=== PATIENT | female | born 1940 | race Caucasian/White ===

== ENCOUNTER → 2016-07-01 | Outpatient (CLI) | payer BC ==
[~2016-07-01] MED LIST: ACET-1256 PO; AMIO200T4 PO; ATOR-22 PO; FAMO20TA11 PO; FURO20TA PO; IPRA1AER2 INH; LOSA50TA6 PO; MULT-506 PO; ULT/50 PO; VERA120T65 PO; WARF1TAB6 PO
[2016-07-01 13:49] LABS: BASO % 0.8 %; BASO ABS # 0.05 K/uL (0-0.2); COMPLETE YES; HEMATOCRIT 39.8 % (37-47); IG% 0.2 %; LYMPH % 28.8 %; LYMPH ABS # 1.85 K/uL (1.2-3.4); MEAN CELL VOLUME 86.1 fL (80-100); MEAN CORPUSCULAR HEMOGLOBIN 28.4 pg (25-34); MEAN CORPUSCULAR HGB CONC 32.9 g/dl (32-36); MEAN PLATELET VOLUME 11.5 fL (7.4-10.4); MONO % 7.8 %; NEUT % 60.4 %; PLATELET COUNT 227 K/uL (130-400); RED BLOOD COUNT 4.62 M/uL (4.2-5.4); WHITE BLOOD COUNT 6.43 K/uL (4.8-10.8)
[2016-07-01 14:11] LABS: ALT/SGPT 44 U/L (12-78); BLOOD UREA NITROGEN 15 mg/dl (7-18); BUN/CREATININE RATIO 22.4 (10-20); CARBON DIOXIDE 26 mmol/L (21-32); CHLORIDE 106 mmol/L (98-107); CREATININE 0.68 mg/dl (0.60-1.20); GLUCOSE 76 mg/dl (70-99); POTASSIUM 3.7 mmol/L (3.5-5.1); SODIUM 143 mmol/L (136-145)
[2016-07-01 14:22] LABS: ALB/GLOB RATIO 0.9 (0.9-2); ALKALINE PHOSPHATASE 137 U/L (45-117); AST/SGOT 31 U/L (15-37)
[2016-07-01 14:23] LABS: ESTIMATED AVERAGE GLUCOSE 131 mg/dl; HA1C FLAG Normal (Normal)
== END | disposition home or self-care (01) ==
LOC: C.LABBC 10:30
PROVIDERS: ATTEND Internal Medicine Geriatric Medicine
DX: M19.90 Unspecified osteoarthritis, unspecified site (principal); I10 Essential (primary) hypertension; E78.5 Hyperlipidemia, unspecified; E11.9 Type 2 diabetes mellitus without complications; I48.0 Paroxysmal atrial fibrillation; Z79.01 Long term (current) use of anticoagulants

== ENCOUNTER → 2016-12-29 | Outpatient (CLI) | payer BC ==
[2016-12-29 10:54] LABS: BASO % 0.5 %; BASO ABS # 0.03 K/uL (0-0.2); COMPLETE YES; EOS % 1.6 %; HEMATOCRIT 38.6 % (37-47); IG% 0.2 %; LYMPH ABS # 1.79 K/uL (1.2-3.4); MEAN CELL VOLUME 92.1 fL (80-100); MEAN CORPUSCULAR HEMOGLOBIN 29.6 pg (25-34); MEAN CORPUSCULAR HGB CONC 32.1 g/dl (32-36); MEAN PLATELET VOLUME 11.4 fL (7.4-10.4); MONO % 7.5 %; NEUT % 61.2 %; PLATELET COUNT 200 K/uL (130-400); RED BLOOD COUNT 4.19 M/uL (4.2-5.4); WHITE BLOOD COUNT 6.17 K/uL (4.8-10.8)
[2016-12-29 10:57] LABS: ESTIMATED AVERAGE GLUCOSE 140 mg/dl; HA1C FLAG Normal (Normal)
[2016-12-29 14:33] LABS: ALT/SGPT 35 U/L (12-78); AST/SGOT 19 U/L (15-37); BLOOD UREA NITROGEN 18 mg/dl (7-18); BUN/CREATININE RATIO 22.7 (10-20); CARBON DIOXIDE 26 mmol/L (21-32); CHLORIDE 109 mmol/L (98-107); CHOLESTEROL 181 mg/dl (0-200); CREATININE 0.78 mg/dl (0.60-1.20); GLUCOSE 130 mg/dl (70-99); POTASSIUM 3.7 mmol/L (3.5-5.1); SODIUM 142 mmol/L (136-145); TRIGLYCERIDES 316 mg/dl (0-150); VERY LOW DENSITY LIPOPROT CALC 63 mg/dl
[2016-12-29 14:36] LABS: ALB/GLOB RATIO 1.1 (0.9-2); ALKALINE PHOSPHATASE 113 U/L (45-117); CHOLESTEROL/HDL RATIO 3.4; HDL CHOLESTEROL 54 mg/dl; LDL CHOLESTEROL CALCULATED 64 mg/dl
== END | disposition home or self-care (01) ==
LOC: C.LABBC 09:12
PROVIDERS: ATTEND Internal Medicine Geriatric Medicine
DX: M19.90 Unspecified osteoarthritis, unspecified site (principal); I10 Essential (primary) hypertension; M79.7 Fibromyalgia; E78.5 Hyperlipidemia, unspecified; E55.9 Vitamin D deficiency, unspecified; E11.9 Type 2 diabetes mellitus without complications

== ENCOUNTER → 2017-03-16 | Outpatient (CLI) | payer BC ==
--- NOTE | 2017-03-16 15:16 | MAMMOGRAPHY REPORT ---
BILATERAL DIGITAL SCREENING MAMMOGRAM WITH CAD: 03/16/2017 CLINICAL HISTORY: Routine screening. TECHNIQUE: Bilateral CC, MLO and repeat MLO views were obtained with more anterior compression. Cur rent study was also evaluated with a Computer Aided Detection (CAD) system. COMPARISON: Comparison is made to exams dated: 03/15/2016 mammogram, 03/12/2015 mammogram, 03/11/2014 m ammogram, 10/12/2013 mammogram, 03/07/2013 mammogram, and 03/06/2012 mammogram - [facility] enter. BREAST COMPOSITION: There are scattered areas of fibroglandular density in both breasts. FINDINGS: Linear scar markers overlie the left breast. There is a stable ribbon-shaped biopsy marker clip in the 12:00 anterior left breast. Stable asymmetry in the superior left breast. Mild vascula r calcification and benign coarse complications bilaterally. No suspicious mass, architectural disto rtion or cluster of microcalcifications is seen. IMPRESSION: ACR BI-RADS CATEGORY 1: NEGATIVE There is no mammographic evidence of malignancy. A 1 year screening mammogram is recommended. The pa tient will receive written notification of the results. Approximately 10% of breast cancers are not detected with mammography. A negative mammographic report should not delay biopsy if a clinically suggestive mass is present. Mariah Augustin M.D. ay/:03/16/2017 10:57:33 Income Tax Analyst: Hakan HANLEY(Lorin)(Kane), [facility] letter sent: Normal 1/2 BI-RADS Code: ACR BI-RADS Category 1: Negative
== END | disposition home or self-care (01) ==
LOC: C.MAMM 08:56
PROVIDERS: ATTEND Internal Medicine Geriatric Medicine
DX: Z12.31 Encounter for screening mammogram for malignant neoplasm of breast (principal)

== ENCOUNTER → 2017-07-08 | Outpatient (CLI) | payer BC ==
[2017-07-08 13:31] LABS: BASO % 0.7 %; BASO ABS # 0.05 K/uL (0-0.2); EOS % 2.3 %; EOS ABS # 0.16 K/uL (0-0.5); HEMATOCRIT 37.8 % (37-47); HEMOGLOBIN 12.3 g/dL (12.0-16.0); IG# 0.03 K/uL (0.00-0.02); LYMPH ABS # 2.49 K/uL (1.2-3.4); MEAN CELL VOLUME 90.9 fL (80-100); MEAN CORPUSCULAR HEMOGLOBIN 29.6 pg (25-34); MEAN CORPUSCULAR HGB CONC 32.5 g/dl (32-36); MEAN PLATELET VOLUME 10.7 fL (7.4-10.4); MONO % 10.7 %; MONO ABS # 0.76 K/uL (0.11-0.59); NEUT % 50.9 %; NEUT ABS # 3.62 K/uL (1.4-6.5); PLATELET COUNT 264 K/uL (130-400); RED CELL DISTRIBUTION WIDTH CV 12.5 % (11.5-14.5); RED CELL DISTRIBUTION WIDTH SD 41.4 fL (36.4-46.3); WHITE BLOOD COUNT 7.11 K/uL (4.8-10.8)
[2017-07-08 13:51] LABS: HEMOGLOBIN A1C 6.5 % (4.5-5.6)
[2017-07-08 14:29] LABS: BLOOD UREA NITROGEN 19 mg/dl (7-18); CALCIUM 8.9 mg/dl (8.5-10.1); CARBON DIOXIDE 30 mmol/L (21-32); CREATININE 0.62 mg/dl (0.60-1.20); GLUCOSE 111 mg/dl (70-99); SODIUM 139 mmol/L (136-145)
== END | disposition home or self-care (01) ==
LOC: C.LABBC 11:02
PROVIDERS: ATTEND Internal Medicine Geriatric Medicine
DX: M19.90 Unspecified osteoarthritis, unspecified site (principal); I10 Essential (primary) hypertension; M79.7 Fibromyalgia; E11.9 Type 2 diabetes mellitus without complications; I48.0 Paroxysmal atrial fibrillation; Z79.01 Long term (current) use of anticoagulants; I48.92 Unspecified atrial flutter

== ENCOUNTER → 2017-09-13 | Outpatient (CLI) | payer BC ==
[2017-09-13 17:11] LABS: HEMATOCRIT 36.2 % (37-47); HEMOGLOBIN 12.3 g/dL (12.0-16.0); MEAN CORPUSCULAR HEMOGLOBIN 30.9 pg (25-34); MEAN PLATELET VOLUME 11.3 fL (7.4-10.4); PLATELET COUNT 224 K/uL (130-400); RED CELL DISTRIBUTION WIDTH CV 13.1 % (11.5-14.5); RED CELL DISTRIBUTION WIDTH SD 43.8 fL (36.4-46.3); WHITE BLOOD COUNT 8.32 K/uL (4.8-10.8)
[2017-09-13 17:25] LABS: INR 2.3 (0.9-1.1)
== END | disposition home or self-care (01) ==
LOC: C.LABBC 14:25
PROVIDERS: ATTEND Internal Medicine Geriatric Medicine
DX: R58 Hemorrhage, not elsewhere classified (principal)

== ENCOUNTER → 2017-09-29 | Outpatient (CLI) | payer BC ==
[2017-09-29 16:06] LABS: ALBUMIN 3.7 gm/dl (3.4-5.0); BLOOD UREA NITROGEN 17 mg/dl (7-18); CALCIUM 8.5 mg/dl (8.5-10.1); CARBON DIOXIDE 28 mmol/L (21-32); CREATININE 0.71 mg/dl (0.60-1.20); PHOSPHORUS 3.3 mg/dl (2.5-4.9); POTASSIUM 3.7 mmol/L (3.5-5.1); SODIUM 139 mmol/L (136-145)
[2017-09-29 16:32] LABS: GLUCOSE 182 mg/dl (70-99)
== END | disposition home or self-care (01) ==
LOC: C.LAB 14:17
PROVIDERS: ATTEND Registered Nurse
DX: E11.9 Type 2 diabetes mellitus without complications (principal)

== ENCOUNTER → 2017-10-04 | Outpatient (CLI) | payer BC ==
[~2017-10-04] MED LIST changes: +OPTIRAY 320 IV PRN
--- NOTE | 2017-10-04 16:23 | DIAGNOSTIC IMAGING REPORT ---
CT SCAN OF THE ABDOMEN AND PELVIS WITH IV CONTRAST CLINICAL HISTORY: Hematochezia. Abdominal bloating. COMPARISON STUDY: Abdominal CT dated 03/31/2016. TECHNIQUE: Following the IV administration of 93 cc of Optiray 320, CT scan of the abdomen and pelvis is performed from the lung bases to the proximal femora. Images are reviewed in the axial, sagittal, and coronal planes. IV contrast was administered without complication. A dose lowering technique was utilized adhering to the principles of ALARA. CT DOSE: 875.20 mGycm FINDINGS: Lung bases: The patient is status post midline sternotomy. The heart is enlarged and without pericardial effusion. There is evidence of previous mitral valve surgery. Pacemaker leads are noted. The lung bases are clear. Liver: The contrast-enhanced liver is normal in size, contour, and attenuation. Fatty infiltration is seen adjacent to falciform ligament. There is no intrahepatic biliary ductal dilatation. The hepatic veins and portal veins are patent. Gallbladder: Unremarkable. Spleen: Normal in size and attenuation. Pancreas: Unremarkable. Adrenal glands: Unremarkable. Kidneys: The contrast enhanced kidneys demonstrate mild cortical atrophy and are without hydronephrosis. There is mild fullness of the renal collecting system bilateral. The kidneys enhance symmetrically. Abdominal vasculature: The abdominal aorta is normal in course and caliber noting mild to moderate atherosclerotic calcification. 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 No bowel obstruction is seen. There is advanced diverticulosis of the left colon without CT evidence of acute diverticulitis. The appendix is not identified and reported surgically absent. Peritoneum: There is no intraperitoneal free air or abdominal ascites. Lymphadenopathy: None. Pelvic viscera: The bladder is normal as visualized. The uterus is surgically absent. No adnexal lesion is seen. Skeletal structures: The skeletal structures are osteopenic. Postlaminectomy change is seen in the lower lumbar spine. No lytic or blastic lesions are seen. IMPRESSION: 1. There are no acute infectious or inflammatory findings in the abdomen or pelvis. 2. Again seen are postoperative changes from a transverse colostomy. No bowel obstruction is identified. 3. There is advanced diverticulosis of the left colon without CT evidence of acute diverticulitis. 4. Cardiomegaly. 5. Additional findings as above. Electronically signed by: Kaiden Lopez M.D. 10/04/2017 4:22 PM Dictated Date/Time: 10/04/2017 4:15 PM
== END | disposition home or self-care (01) ==
LOC: C.CTS 15:03
PROVIDERS: ATTEND Registered Nurse
DX: K62.5 Hemorrhage of anus and rectum (principal); R14.0 Abdominal distension (gaseous); I51.7 Cardiomegaly; K57.90 Diverticulosis of intestine, part unspecified, without perforation or abscess without bleeding

== ENCOUNTER → 2017-10-26 | Day surgery (SDC) | payer BC ==
[2017-10-17 09:01] VITALS: Ht 162.6 cm; Wt 72.7 kg
[~2017-10-26] VITALS: Ht 162.6 cm; Wt 72.7 kg
[~2017-10-26] MED LIST changes: -AMIO200T4 PO; +AMOX500C3 PO; +CHOL1TAB46 PO; +DSY50 PO; -FAMO20TA11 PO; -FURO20TA PO; +LIDOCAINE HCL 2% 2 ML VIAL (20MG/ML) ONE; +MIDAZOLAM HCL 1 MG/ML 2ML VIAL ONE; +ONDANSETRON INJ 2 MG/ML 2 ML VIAL ONE; -OPTIRAY 320 IV PRN; +PROPOFOL IV EMULSION 10 MG/ML 20 ML VIAL ONE; +SODIUM CHLORIDE 0.9% 500ML 500 ML IV ONE
--- NOTE | 2017-10-26 08:24 | Endo History and Physical ---
History & Physical Date of Service: October 26, 2017. Chief Complaint: Blood in stool Referring Physician: Dr. Dunne History of Present Illness 77 yo CF who presents for colonoscopy secondary to blood in stool. Past Medical History Diabetes, Arthritis, Gastrointestinal Disorder, Reflux, High Cholesterol, Sleep Apnea, Hypertension Past Surgical History Hx Cardiac Surgery: Yes ([id number], HEART CATH 2015) Hx Internal Defibrillator: No Hx Pacemaker: Yes (BIOTRONIC) Hx Abdominal Surgery: Yes (colon resection with colostomy 03/2015, APPY, [facility]) Hx of Implantable Prosthesis: No Hx Post-Op Nausea and Vomiting: No Hx Cancer Surgery: No Hx Thoracic Surgery: No Hx Orthopedic: Yes (LUMBAR FUSION, R RADIAL HEAD REPAIR 1972, BILT TKA) Hx Urinary Tract Surgery: No Family History Esophogeal CA Social History Smoking Status: Never Smoker Hx Substance Use: No Hx Alcohol Use: No Allergies Coded Allergies: Adhesives (Verified Allergy, Unknown, 03/30/16) Citalopram (Verified Allergy, Unknown, ? HIVES, 03/30/16) Clonidine (Verified Allergy, Unknown, pt doesn't remember what happened, 03/30/16) Codeine (Verified Allergy, Unknown, HIVES, NAUSEA/VOMITING, 03/30/16) Dexbrompheniramine (Verified Allergy, Unknown, 03/30/16) Nabumetone (Unverified Allergy, Unknown, DIARRHEA, 03/30/16) Pregabalin (Verified Allergy, Unknown, unknown, 03/30/16) Triprolidine (Verified Allergy, Unknown, 03/30/16) Metformin (Verified Adverse Reaction, Severe, diarrhea, 03/30/16) Brompheniramine (Unverified Adverse Reaction, Mild, hives, 03/30/16) Topiramate (Verified Adverse Reaction, Mild, DISORIENTED, 03/30/16) Amitriptyline (Verified Adverse Reaction, Unknown, DISORIENTED, 03/30/16) Morphine (Verified Adverse Reaction, Unknown, BURNING IN BACK AREA, ) Pseudoephedrine (Unverified Adverse Reaction, Unknown, hives, 03/30/16) Raloxifene (Verified Adverse Reaction, Unknown, DISORIENTED, 03/30/16) Current Medications Reported Home Medications Medications Dose Route/Sig Max Daily Dose Days Date Category Dose Instructions Vitamin D3 (Cholecalciferol) 5,000 Unit Tab 1 Tab PO DAILY 10/17/17 Reported Trazodone HCl 50 Mg Tab 0.5 Tab PO HS 10/17/17 Reported Amoxil (Amoxicillin) 500 Mg Cap 4 Cap PO UD 10 10/17/17 Reported Jantoven (Warfarin Sodium) 1 Mg Tab 3 Mg PO 2XWK 10/17/17 Reported Tylenol (Acetaminophen) 500 Mg Tab 1 Tab PO Q8 3 06/03/16 Reported Jantoven (Warfarin Sodium) 1 Mg Tab 1 Mg PO 5XWK 06/03/16 Reported Lipitor (Atorvastatin Calcium) 20 Mg Tab 1 Tab PO DAILY 30 06/03/16 Reported Multivitamin (Multivitamins) Tab 1 Tab PO DAILY 06/03/16 Reported Verapamil HCl ER (Verapamil HCl) 120 Mg Tabcr 240 Mg PO QAM 03/30/16 Reported Cozaar (Losartan Potassium) 50 Mg Tab 100 Mg PO QPM 02/13/16 Reported Ultram (Tramadol Hcl) 50 Mg Tab 50 Mg PO Q8 PRN 03/31/13 Reported PRN PAIN Combivent Respimat (Ipratropium-Albuterol) 1 Aer Aer 2 Puffs INH QID PRN 03/31/13 Reported Vital Signs Weight (Kilograms): 72.73 Height (Feet): 5 Height (Inches): 4 Date Time Temp Pulse Resp B/P (MAP) Pulse Ox O2 Delivery O2 Flow Rate FiO2 10/26/17 08:11 37.0 87 16 147/91 (109) 93 Room Air Physical Exam General Appearance: WD/WN, no apparent distress Respiratory/Chest: Auscultation: breath sounds normal Cardiovascular: Heart Auscultation: RRR Abdomen: Bowel Sounds: normal Inspection & Palpation: soft, non-distended, no tenderness, guarding & rebound Assessment and Plan Assessment: 77 yo CF who presents for colonoscopy secondary to blood in stool. Plan: Proceed with colonoscopy.
--- NOTE | 2017-10-26 09:15 | Anesthesiology Progress Note ---
Anesthesia Post Op Note Date & Time October 26, 2017 at 09:13 Vital Signs Pain Intensity: 0 Vital Signs Past 12 Hours Date Time Temp Pulse Resp B/P (MAP) Pulse Ox O2 Delivery O2 Flow Rate FiO2 10/26/17 08:11 37.0 87 16 147/91 (109) 93 Room Air Notes Mental Status: alert / awake / arousable, participated in evaluation Pt Amnestic to Procedure: Yes Nausea / Vomiting: adequately controlled Pain: adequately controlled Airway Patency, RR, SpO2: stable & adequate BP & HR: stable & adequate Hydration State: stable & adequate Anesthetic Complications: no major complications apparent The patient is awake and her vitals are stable.
--- NOTE | 2017-10-26 09:24 | Discharge Instructions ---
Endoscopy Patient Instructions Date / Procedure(s) Performed October 26, 2017. Colonoscopy Allergy Information Coded Allergies: Adhesives (Verified Allergy, Unknown, 03/30/16) Citalopram (Verified Allergy, Unknown, ? HIVES, 03/30/16) Clonidine (Verified Allergy, Unknown, pt doesn't remember what happened, 03/30/16) Codeine (Verified Allergy, Unknown, HIVES, NAUSEA/VOMITING, 03/30/16) Dexbrompheniramine (Verified Allergy, Unknown, 03/30/16) Nabumetone (Unverified Allergy, Unknown, DIARRHEA, 03/30/16) Pregabalin (Verified Allergy, Unknown, unknown, 03/30/16) Triprolidine (Verified Allergy, Unknown, 03/30/16) Metformin (Verified Adverse Reaction, Severe, diarrhea, 03/30/16) Brompheniramine (Unverified Adverse Reaction, Mild, hives, 03/30/16) Topiramate (Verified Adverse Reaction, Mild, DISORIENTED, 03/30/16) Amitriptyline (Verified Adverse Reaction, Unknown, DISORIENTED, 03/30/16) Morphine (Verified Adverse Reaction, Unknown, BURNING IN BACK AREA, ) Pseudoephedrine (Unverified Adverse Reaction, Unknown, hives, 03/30/16) Raloxifene (Verified Adverse Reaction, Unknown, DISORIENTED, 03/30/16) Discharge Date / Findings October 26, 2017. Diverticulosis Mild inflammation in the rectosigmoid colon Medication Instructions Stopped Medication(s): COUMADIN OK to resume all medications today as prescribed Reported Home Medications Medications Dose Route/Sig Max Daily Dose Days Date Category Dose Instructions Vitamin D3 (Cholecalciferol) 5,000 Unit Tab 1 Tab PO DAILY 10/17/17 Reported Trazodone HCl 50 Mg Tab 0.5 Tab PO HS 10/17/17 Reported Amoxil (Amoxicillin) 500 Mg Cap 4 Cap PO UD 10 10/17/17 Reported Jantoven (Warfarin Sodium) 1 Mg Tab 3 Mg PO 2XWK 10/17/17 Reported Tylenol (Acetaminophen) 500 Mg Tab 1 Tab PO Q8 3 06/03/16 Reported Jantoven (Warfarin Sodium) 1 Mg Tab 1 Mg PO 5XWK 06/03/16 Reported Lipitor (Atorvastatin Calcium) 20 Mg Tab 1 Tab PO DAILY 30 06/03/16 Reported Multivitamin (Multivitamins) Tab 1 Tab PO DAILY 06/03/16 Reported Verapamil HCl ER (Verapamil HCl) 120 Mg Tabcr 240 Mg PO QAM 03/30/16 Reported Cozaar (Losartan Potassium) 50 Mg Tab 100 Mg PO QPM 02/13/16 Reported Ultram (Tramadol Hcl) 50 Mg Tab 50 Mg PO Q8 PRN 03/31/13 Reported PRN PAIN Combivent Respimat (Ipratropium-Albuterol) 1 Aer Aer 2 Puffs INH QID PRN 03/31/13 Reported Provider Instructions Activity Restrictions - No exercising or heavy lifting for 24 hours. - Do not drink alcohol the day of the procedure. - Do not drive a car or operate machinery until the day after the procedure. - Do not make any important decisions or sign important papers in 24 hours after the procedure. Following Day: - Return to full activity which may include returning to work/school. Diet Start your diet with liquids and light foods (jello, soup, juice, toast). Then eat your usual diet if not nauseated. Treatment For Common After Affects For mild abdominal pain, bloating, or excessive gas: - Rest - Eat lightly - Lie on right side Follow-Up Information Follow-up with Dr. Dunne as scheduled Anesthesia Information What You Should Know You have had a procedure that required some medicine to reduce anxiety and discomfort. This treatment is called moderate sedation. After receiving the treatment, you may be sleepy, but you will be able to breathe on your own. The effects of the treatment may last for several hours. Follow these instructions along with Activity/Diet recommendations noted above: * Do NOT do anything where dizziness or clumsiness would be dangerous. * Rest quietly at home today, then you can be up and about tomorrow. * Have a responsible person stay with you the rest of today. * You may have had an I.V. today. If so, you may take the dressing off later today. Recommendations Call your doctor if: * Trouble breathing * Continuous vomiting for more than 24 hours * Temperature above 101 degrees * Severe abdominal pain or bloating * Pain not relieved by pain medicine ordered * There is increased drainage or redness from any incision * A large amount of rectal bleeding greater than 2-3 tablespoons. (If you had a polyp/s removed or have hemorrhoids, a small amount of blood - from the rectum is to be expected.) * You have any unanswered questions or concerns. IN THE EVENT OF A SERIOUS EMERGENCY, GO TO THE NEAREST EMERGENCY ROOM Your discharge instructions were prepared by provider Joey Bautista. Patient Instructions Signature Page Erin Gates Patient (or Guardian) Signature/Date: I have read and understand the instructions given to me by my caregivers. Caregiver/RN/Doctor Signature/Date: The above-named patient and/or guardian has received patient instructions on this date. + Original Patient Signature Page (only) stays with chart. Please make copy for patient.
[2017-10-26 09:25] VITALS: BP 110/70; PULSE 71; O2SAT 95
--- NOTE | 2017-10-26 10:25 | GI REPORT ---
Patient Name: Erin Gates Procedure Date: 10/26/2017 8:12 AM Date of : 1940 Admit Type: Outpatient Age: 77 Gender: Female Attending MD: Joey Bautista DO Procedure: Colonoscopy Providers: Joey Bautista DO Referring MD: Ian Dunne Indications: Ileostomy bleed Medicines: Monitored Anesthesia Care Complications: No immediate complications. Estimated Blood Loss: Estimated blood loss: none. Procedure: Pre-Anesthesia Assessment: - Prior to the procedure, a History and Physical was performed, and patient medications and allergies were reviewed. The patient's tolerance of previous anesthesia was also reviewed. The risks and benefits of the procedure and the sedation options and risks were discussed with the patient. All questions were answered, and informed consent was obtained. Prior Anticoagulants: The patient has taken Coumadin (warfarin), last dose was 3 days prior to procedure. ASA Grade Assessment: III - A patient with severe systemic disease. After reviewing the risks and benefits, the patient was deemed in satisfactory condition to undergo the procedure. After I obtained informed consent, the scope was passed under direct vision. Throughout the procedure, the patient's blood pressure, pulse, and oxygen saturations were monitored continuously. The scope was introduced through the transverse colostomy and advanced to the terminal ileum. The colonoscopy was performed without difficulty. The scope was introduced through the transverse colostomy and advanced to the transverse colon, but was limited secondary to a large amount of solid stool. This was the intended extent. The scope was introduced through the anus and advanced to the sigmoid colon. The patient tolerated the procedure well. The quality of the bowel preparation was good. The terminal ileum, the ileocecal valve and the appendiceal orifice were photographed. Findings: The perianal and digital rectal examinations were normal. A few small-mouthed diverticula were found in the sigmoid colon. A diffuse area of mildly altered vascular and erythematous mucosa was found in the recto-sigmoid colon. Impression: - Diverticulosis in the sigmoid colon. - Altered vascular and erythematous mucosa in the recto-sigmoid colon. - No specimens collected. Recommendation: - Resume previous diet. - Continue present medications. - Return to primary care physician as previously scheduled. - No repeat colonoscopy due to age and the absence of advanced adenomas. Joey Bautista DO 10/26/2017 10:25:36 AM This report has been signed electronically. Note Initiated On: 10/26/2017 8:12 AM Number of Addenda: 0 I attest to the content of the Intraoperative Record and orders documented therein, exceptions below {[id number]}
== END | disposition home or self-care (01) ==
LOC: C.GI 07:19
PROVIDERS: ATTEND Internal Medicine
DX: K92.1 Melena (principal); R14.0 Abdominal distension (gaseous); K63.89 Other specified diseases of intestine; E11.9 Type 2 diabetes mellitus without complications; Z93.3 Colostomy status; G47.33 Obstructive sleep apnea (adult) (pediatric); I10 Essential (primary) hypertension; Z79.899 Other long term (current) drug therapy; Z80.0 Family history of malignant neoplasm of digestive organs; Z88.8 Allergy status to other drugs, medicaments and biological substances; Z88.5 Allergy status to narcotic agent; Z79.01 Long term (current) use of anticoagulants; K57.30 Diverticulosis of large intestine without perforation or abscess without bleeding

== ENCOUNTER 2021-11-21 09:59 | Inpatient (IN) ==
[2021-11-21] MEDS ORDERED: SODIUM CHLORIDE 0.9% 1000ML 500 ML IV ONE (10:09)
--- NOTE | 2021-11-21 10:31 | Emergency Department Note ---
History of Present Illness General Chief complaint: Weakness Stated complaint: DISORIENTED, WEAK, HAD PARACENTESIS YESTERDAY Time Seen by Provider: 11/21/21 10:09 Source: family ( and daughter) History of Present Illness Provider complaint: Weakness Onset (ago): day(s) 2 Maximum Pain Intensity: 9 Associated symptoms: + confusion, + nausea/vomiting and + weakness; no chest pain, no cough, no fever/chills, no headaches or no shortness of breath 81-year-old female presents emergency department with family for weakness. Patient has a history of adrenal cancer and is being treated by Dr. Low [facility] oncology. The family reports that she has been increasingly disoriented confused and nauseous since yesterday after she had a paracentesis done where they removed 9 L of fluid and gave her albumin. They report that the patient has not been eating and has been vomiting. Home Medications Medication Instructions Recorded Confirmed Type cholecalciferol (vitamin D3) 125 5,000 units PO DAILY tab 01/10/19 11/20/21 History mcg (5,000 unit) tablet magnesium oxide 400 mg PO DAILY cap 01/10/19 11/20/21 History multivitamin 1 tab PO DAILY 01/10/19 11/20/21 History lancets 33 gauge ([facility]a 10/04/19 11/20/21 Rx Lancets) amoxicillin 500 mg capsule 2,000 mg PO ONCE PRN cap 04/29/20 11/20/21 History warfarin 1 mg tablet 2 mg PO .as directed tab 05/08/20 11/20/21 History warfarin 1 mg tablet 3 mg PO .as directed tab 05/08/20 11/20/21 History blood sugar diagnostic ([facility] 08/25/20 11/20/21 Rx Ultra Blue Test Strip) verapamil 240 mg 24 hr 360 mg PO DAILY cap 07/03/21 11/20/21 History capsule,extended release atorvastatin 20 mg tablet 20 mg PO DAILY #90 tab 07/28/21 11/20/21 Rx acetaminophen 500 mg tablet 500 mg PO Q6H PRN 10/08/21 11/20/21 History (Tylenol Extra Strength) tramadol 50 mg tablet 25 mg PO Q8H PRN #45 tab 10/12/21 11/20/21 Rx lmpnqhfjrz-htapbehjprlln-atemilff 1 cap PO Q4H PRN 10/15/21 11/20/21 History 50 mg-325 mg-40 mg capsule losartan 100 mg tablet (Cozaar) 100 mg PO DAILY 10/15/21 11/20/21 History Allergies Allergy/AdvReac Type Severity Reaction Status Date / Time citalopram Allergy Intermediate ? HIVES Verified 11/20/21 12:32 codeine Allergy Intermediate HIVES, Verified 11/20/21 12:32 NAUSEA/VOMITING adhesive Allergy Mild Redness of Verified 11/20/21 12:32 Skin dexbrompheniramine Allergy Unknown Unknown Verified 11/20/21 12:32 pregabalin Allergy Unknown unknown Verified 11/20/21 12:32 triprolidine Allergy Unknown Unknown Verified 11/20/21 12:32 metformin AdvReac Intermediate diarrhea Verified 11/20/21 12:32 pseudoephedrine AdvReac Intermediate hives Verified 11/20/21 12:32 brompheniramine AdvReac Mild hives Verified 11/20/21 12:32 nabumetone AdvReac Mild DIARRHEA Verified 11/20/21 12:32 raloxifene AdvReac Mild DISORIENTED Verified 11/20/21 12:32 topiramate AdvReac Mild DISORIENTED Verified 11/20/21 12:32 amitriptyline AdvReac Unknown DISORIENTED Verified 11/20/21 12:32 morphine AdvReac Unknown BURNING IN Verified 11/20/21 12:32 BACK AREA Past Med/Surg History Medical History Aortic atherosclerosis Asthma Atrial fibrillation (~2015) Followed by [facility] Back pain, chronic Cardiac pacemaker Chronic anticoagulation Managed by [facility] Chronic osteoarthritis Compression fracture of thoracic vertebra Coronary artery calcification Diverticulitis s/p colostomy Fibromyalgia Heart failure Hematuria, gross Hepatic steatosis Hyperlipidemia Hypertension Insomnia Migraine with aura Obstructive sleep apnea Rheumatic mitral valve disease Type 2 diabetes mellitus Vitamin D deficiency Surgical History H/O colonoscopy H/O hemorrhoidectomy H/O hysterectomy with oophorectomy age 42- due to ovarian cyst and abnormal bleeding H/O mitral valve replacement (~2015) 04/23/[address] [facility] Biocor 29 mm valve. H/O tooth extraction History of appendectomy History of back surgery lumbar surgery with Dr. Chaparro in 2011 History of bilateral knee replacement left knee- 2003, right knee- 2008 History of bunionectomy History of creation of ostomy (~2013) Diverting Transverse Loop Colostomy History of surgery on arm Hx of tonsillectomy Family History Unknown Diabetes Son cerebral palsey Mother COPD (chronic obstructive pulmonary disease) Diabetes Cardiovascular disease Hypertension Cancer Bone Daughter Breast cancer Sister Breast cancer unsure of primary site Father Malignant neoplasm of esophagus Arteriosclerotic cardiovascular disease Diabetes Heart disease Hypertension Brother Prostate cancer Sister Breast cancer Social History Smoking Status: Never smoker Second Hand Exposure: No; Hx Alcohol Use: No Hx Substance Use: No Preferred Language: Iranian Communication Ability: Effective Visual Impairment: Limited Hearing Ability: Normal 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 Gas Required: No Beliefs That Will Affect Care: None marital status: Current Living Situation: Spouse current occupational status: retired 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[employer]; 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 [employer] How many Children do You have: 3 How many Children do You have Comment: son passed at age 18 Feels Safe at Home: Yes Childhood Exposure to Second-Hand Smoke: Yes caffeine: No during the past year weight has: remained stable Dental Care, Regularly: Yes Physical Activity Frequency: 1-2 Times per Week Seatbelt Use: always Sunscreen Use: Yes Review of Systems Unobtainable due to cognitive status Physical Exam Vital Signs Vital Signs - 24 hr 11/21/21 10:03 11/21/21 10:10 11/21/21 10:40 Temperature 36.8 C Temperature Source Temporal Artery Scan Pulse Rate 102 H Pulse Rate [Apical] 92 H Respiratory Rate 18 20 Blood Pressure 98/53 L Blood Pressure [Right Arm] 97/48 L Blood Pressure Mean 68 Blood Pressure Mean [Right Arm] 64 Pulse Oximetry 96 96 Oxygen Delivery Method Room Air Room Air Room Air Sepsis Recent Fever Within 48 Hours No Sepsis New/Unexplained Change in Mental Status Yes Sepsis Action Taken by Nursing MD Previously Notified 11/21/21 12:00 Temperature Temperature Source Pulse Rate Pulse Rate [Apical] 97 H Respiratory Rate 17 Blood Pressure Blood Pressure [Right Arm] 103/58 L Blood Pressure Mean Blood Pressure Mean [Right Arm] 73 Pulse Oximetry 95 Oxygen Delivery Method Room Air Sepsis Recent Fever Within 48 Hours Sepsis New/Unexplained Change in Mental Status Sepsis Action Taken by Nursing Physical Exam HENT: Exam performed. -Head: Normocephalic and atraumatic. -Right Ear: External ear normal. No mastoid tenderness. -Left Ear: External ear normal. No mastoid tenderness. -Mouth/Throat: The oropharynx is clear and moist. No trismus in the jaw. No dental abscesses or uvula swelling. No oropharyngeal exudate or tonsillar abscesses. EYES: Conjunctivae and EOM are normal. Pupils are equal, round, and reactive to light. Right eye exhibits no discharge. Left eye exhibits no discharge. No scleral icterus. NECK: Normal range of motion. Neck supple. No JVD present. No spinous process tenderness present. No carotid bruit present. No rigidity. No tracheal deviation and normal range of motion present. No Brudzinski's sign and no Kernig's sign n oted. CV: Normal rate, regular rhythm, normal heart sounds and intact distal pulses. There is no peripheral edema. Palpable radial pulses bue. PULM/CHEST: Effort normal and breath sounds normal. No respiratory distress. No stridor. She has no wheezes. She has no rales. -Chest Wall: She exhibits no tenderness. ABD: The abdomen is soft. Ostomy bag present. No fluid wave. MUSC/SKEL: Normal range of motion. There is no peripheral edema, tenderness or deformity. LYMPH: No cervical adenopathy. NEURO: Patient appears extremely lethargic. Motor and sensation grossly intact. Course Course 1009: The patient was evaluated in room A2. A complete history and physical exam was performed Cardiac monitoring: An order was placed for continuous cardiac monitoring. The monitor shows a rate of 110 with sinus tachycardia rhythm 1227: Vital signs stable. Imaging shows progression of the peritoneal carcinomatosis. Labs show acute kidney injury. Labs show hemoglobin 4.8. Hemoccult from the ostomy bag is was positive. Patient was noncompliance bolus and drip. Spoke with [facility] hospitalist team who stated to admit to Dr. Florence Administered Medications Discontinued Medications Sodium Chloride (Nss 1000ml) 500 mls @ 999 mls/hr IV .Q31M ONE Stop: 11/21/21 10:39 Last Admin: 11/21/21 12:11 Dose: 999 mls/hr Documented by: [id number] Critical Care Time Critical Care Time: Yes Total Critical Care Time: 49 I have personally spent greater than 49 minutes of critical care time in the direct management of this patient. This includes bedside care, interpretation of diagnostic studies, and testing, discussion with consultants, patient, and family members, and other required patient management activities. This 49 minutes is in excess of all separately billable procedures. Medical Decision Making Laboratory Data Result diagrams: 11/21/21 10:40 11/21/21 10:40 Lab Results 11/21/21 11/21/21 11/21/21 Range/Units 10:40 10:40 10:40 WBC 12.18 H (4.8-10.8) K/uL RBC 1.54 L (4.2-5.4) M/uL Hgb 4.8 L* (12.0-16.0) g/dL Hct 14.5 L* (37-47) % MCV 94.2 (80-100) fL MCH 31.2 (25-34) pg MCHC 33.1 (32-36) g/dL RDW Std Deviation 48.7 H (36.4-46.3) fL RDW Coeff of Jeff 14.5 (11.5-14.5) % Plt Count 399 (130-400) K/uL MPV 8.8 (7.4-10.4) fL Immature Gran % (Auto) 0.7 % Neut % (Auto) 76.8 % Lymph % (Auto) 12.8 % Stafford % (Auto) 9.6 % Eos % (Auto) 0.0 % Baso % (Auto) 0.1 % Neut # (Auto) 9.36 H (1.4-6.5) K/uL Lymph # (Auto) 1.56 (1.2-3.4) K/uL Stafford # (Auto) 1.17 H (0.11-0.59) K/uL Eos # (Auto) 0.00 (0-0.5) K/uL Baso # (Auto) 0.01 (0-0.2) K/uL Immature Gran # (Auto) 0.08 H (0.00-0.02) K/uL Hypochromasia Present PT 10.8 (9.0-12.0) Seconds INR 1.0 (0.9-1.1) APTT 25.1 (21.0-31.0) Seconds PTT Ratio 0.9 Sodium 127 L (136-145) mmol/L Potassium 4.8 (3.5-5.1) mmol/L Chloride 97 L (98-107) mmol/L Carbon Dioxide 23 (21-32) mmol/L Anion Gap 7 (3-11) BUN 47 H (6-23) mg/dl Creatinine 1.59 H (0.6-1.2) mg/dl Est Cr Clr Drug Dosing 28.3 ml/min Est GFR ( Amer) 34.9 ml/min Est GFR (Non-Af Amer) 30.1 ml/min BUN/Creatinine Ratio 29.6 H (10-20) Glucose 81 (70-99(Fasting)) mg/dl Lactate (0.4-2.0) mmol/L Calcium 8.0 L (8.5-10.1) mg/dl Magnesium 2.2 (1.7-2.4) mg/dl Total Bilirubin 0.4 (0.2-1.0) mg/dl AST 32 (13-39) U/L ALT 20 (7-52) U/L Alkaline Phosphatase 67 (34-104) U/L Ammonia (18-72) umol/L Troponin I High Sens 15.6 H (0-14) pg/ml Total Protein 5.5 L (6.0-8.3) gm/dl Albumin 3.1 L (3.4-5.0) gm/dl Globulin 2.4 L (2.5-4.0) gm/dl Albumin/Globulin Ratio 1.3 (0.9-2) Urine Color Urine Appearance (Clear) Urine pH (4.5-7.5) Ur Specific Osburn (1.000-1.030) Urine Protein (Negative) Urine Glucose (UA) (Negative) Urine Ketones (Negative) Urine Blood (Negative) Urine Nitrite (Negative) Urine Bilirubin (Negative) Urine Urobilinogen (Negative) Ur Leukocyte Esterase (Negative) Salicylates (3.0-30) mg/dl Acetaminophen (10-30) ug/ml SARS-CoV-2, RNA, NAAT (NEGATIVE) Crossmatch 05/28/22 05/28/22 05/28/22 Range/Units 10:40 10:40 11:00 WBC (4.8-10.8) K/uL RBC (4.2-5.4) M/uL Hgb (12.0-16.0) g/dL Hct (37-47) % MCV (80-100) fL MCH (25-34) pg MCHC (32-36) g/dL RDW Std Deviation (36.4-46.3) fL RDW Coeff of Jeff (11.5-14.5) % Plt Count (130-400) K/uL MPV (7.4-10.4) fL Immature Gran % (Auto) % Neut % (Auto) % Lymph % (Auto) % Stafford % (Auto) % Eos % (Auto) % Baso % (Auto) % Neut # (Auto) (1.4-6.5) K/uL Lymph # (Auto) (1.2-3.4) K/uL Stafford # (Auto) (0.11-0.59) K/uL Eos # (Auto) (0-0.5) K/uL Baso # (Auto) (0-0.2) K/uL Immature Gran # (Auto) (0.00-0.02) K/uL Hypochromasia PT (9.0-12.0) Seconds INR (0.9-1.1) APTT (21.0-31.0) Seconds PTT Ratio Sodium (136-145) mmol/L Potassium (3.5-5.1) mmol/L Chloride (98-107) mmol/L Carbon Dioxide (21-32) mmol/L Anion Gap (3-11) BUN (6-23) mg/dl Creatinine (0.6-1.2) mg/dl Est Cr Clr Drug Dosing ml/min Est GFR ( Amer) ml/min Est GFR (Non-Af Amer) ml/min BUN/Creatinine Ratio (10-20) Glucose (70-99(Fasting)) mg/dl Lactate 0.9 (0.4-2.0) mmol/L Calcium (8.5-10.1) mg/dl Magnesium (1.7-2.4) mg/dl Total Bilirubin (0.2-1.0) mg/dl AST (13-39) U/L ALT (7-52) U/L Alkaline Phosphatase (34-104) U/L Ammonia (18-72) umol/L Troponin I High Sens (0-14) pg/ml Total Protein (6.0-8.3) gm/dl Albumin (3.4-5.0) gm/dl Globulin (2.5-4.0) gm/dl Albumin/Globulin Ratio (0.9-2) Urine Color Urine Appearance (Clear) Urine pH (4.5-7.5) Ur Specific Osburn (1.000-1.030) Urine Protein (Negative) Urine Glucose (UA) (Negative) Urine Ketones (Negative) Urine Blood (Negative) Urine Nitrite (Negative) Urine Bilirubin (Negative) Urine Urobilinogen (Negative) Ur Leukocyte Esterase (Negative) Salicylates < 3.0 L (3.0-30) mg/dl Acetaminophen 10 (10-30) ug/ml SARS-CoV-2, RNA, NAAT NEGATIVE (NEGATIVE) Crossmatch 11/21/21 11/21/21 11/21/21 Range/Units 11:23 11:45 11:45 WBC (4.8-10.8) K/uL RBC (4.2-5.4) M/uL Hgb (12.0-16.0) g/dL Hct (37-47) % MCV (80-100) fL MCH (25-34) pg MCHC (32-36) g/dL RDW Std Deviation (36.4-46.3) fL RDW Coeff of Jeff (11.5-14.5) % Plt Count (130-400) K/uL MPV (7.4-10.4) fL Immature Gran % (Auto) % Neut % (Auto) % Lymph % (Auto) % Stafford % (Auto) % Eos % (Auto) % Baso % (Auto) % Neut # (Auto) (1.4-6.5) K/uL Lymph # (Auto) (1.2-3.4) K/uL Stafford # (Auto) (0.11-0.59) K/uL Eos # (Auto) (0-0.5) K/uL Baso # (Auto) (0-0.2) K/uL Immature Gran # (Auto) (0.00-0.02) K/uL Hypochromasia PT (9.0-12.0) Seconds INR (0.9-1.1) APTT (21.0-31.0) Seconds PTT Ratio Sodium (136-145) mmol/L Potassium (3.5-5.1) mmol/L Chloride (98-107) mmol/L Carbon Dioxide (21-32) mmol/L Anion Gap (3-11) BUN (6-23) mg/dl Creatinine (0.6-1.2) mg/dl Est Cr Clr Drug Dosing ml/min Est GFR ( Amer) ml/min Est GFR (Non-Af Amer) ml/min BUN/Creatinine Ratio (10-20) Glucose (70-99(Fasting)) mg/dl Lactate (0.4-2.0) mmol/L Calcium (8.5-10.1) mg/dl Magnesium (1.7-2.4) mg/dl Total Bilirubin (0.2-1.0) mg/dl AST (13-39) U/L ALT (7-52) U/L Alkaline Phosphatase (34-104) U/L Ammonia 26.0 (18-72) umol/L Troponin I High Sens (0-14) pg/ml Total Protein (6.0-8.3) gm/dl Albumin (3.4-5.0) gm/dl Globulin (2.5-4.0) gm/dl Albumin/Globulin Ratio (0.9-2) Urine Color Yellow Urine Appearance Clear (Clear) Urine pH 5.0 (4.5-7.5) Ur Specific Osburn 1.016 (1.000-1.030) Urine Protein Negative (Negative) Urine Glucose (UA) Negative (Negative) Urine Ketones Negative (Negative) Urine Blood Negative (Negative) Urine Nitrite Negative (Negative) Urine Bilirubin Negative (Negative) Urine Urobilinogen Negative (Negative) Ur Leukocyte Esterase Negative (Negative) Salicylates (3.0-30) mg/dl Acetaminophen (10-30) ug/ml SARS-CoV-2, RNA, NAAT (NEGATIVE) Crossmatch See Detail Imaging Data Radiologist's Impression: Chest X-Ray 11/21/21 10:10 XR chest 1V portable HISTORY: SEPSIS COMPARISON: Chest 02/13/2016. FINDINGS: No pneumothorax. Trace bilateral pleural effusions. The heart is mildly enlarged. There is mild central pulmonary vascular congestion without overt edema. A few small linear densities within the left midlung zone and right lung base favor subsegmental atelectasis or scarring. Otherwise, no focal lung consolidations to suggest pneumonia. There are poststernotomy changes and left- sided pacemaker. IMPRESSION: Mild cardiomegaly with trace bilateral pleural effusions and mild pulmonary vascular congestion. ACT 112: Negative or not required by law. Electronically signed by: Bi Lujan M.D. 11/21/2021 10:[address] 11/21/21 10:[address] DOSE: HISTORY: weakness TECHNIQUE: Multiaxial CT images of the head were performed without the use of intravenous contrast. Automated exposure control was utilized for this study. A dose lowering technique was utilized adhering to the principles of ALARA. Comparison: Head CT 10/19/2021. Findings: The paranasal sinuses and mastoid air cells are clear. The calvarium and skull base are intact. The ventricles and sulci are within normal limits. There is no mass, hematoma, midline shift, or acute infarct. Impression: No acute intracranial abnormality. ACT 112: Negative or not required by law. Electronically signed by: Bi Lujan M.D. 11/21/2021 12:07 PM Abdomen/Pelvis CT 11/21/21 11:[address] WITHOUT CONTRAST CT DOSE: 1489.25 mGy.cm HISTORY: weakness TECHNIQUE: Multiaxial CT images of the abdomen and pelvis were performed without contrast. A dose lowering technique was utilized adhering to the principles of ALARA. COMPARISON STUDY: Abdomen and pelvis CT 10/05/2021. FINDINGS: Stable 4 mm nodule within the left lower lobe on image 30. There are mild dependent changes seen at the lung bases. No pneumoperitoneum. No pne umatosis. Posterior decompression fusion with pedicle screws and rods again noted within the lumbar spine. There are poststernotomy changes. Pacemaker wires are noted. The heart remains mildly enlarged. There is a small hiatus hernia. Cholelithiasis. No hepatic or splenic masses identified. Normal right adrenal gland. The left adrenal gland appears surgically absent. No retroperitoneal lymphadenopathy. Mild calcified plaque within the normal caliber abdominal aorta. The bladder is not well-distended but appears unremarkable. Colonic diverticulosis. No evidence for acute diverticulitis. No bowel wall thickening or obstruction. There is a double barrel colostomy within the mid transverse colon at the midline. There is associated large parastomal hernia containing fat, fluid, and multiple soft tissue nodules consistent with peritoneal carcinomatosis. Multiple additional soft tissue nodules are seen within the omentum and peritoneal lining. This is consistent with peritoneal carcinomatosis . Overall, this has progressed in the interval. A small amount of scattered ascites has slightly improved. The left suprarenal/upper quadrant hyperdense soft tissue nodule is again noted and measures 11 mm. No hydronephrosis. IMPRESSION: 1. Interval progression of the peritoneal carcinomatosis demonstrated by increase in the soft tissue nodularity/caking at the omentum. 2. Small amount of ascites which has slightly improved. 3. Cholelithiasis. 4. No bowel wall thickening or obstruction. 5. Additional findings as described above. ACT 112: Negative or not required by law. Electronically signed by: Bi Lujan M.D. 11/21/2021 12:04 PM ECG Data Indication: + weakness Rate (beats per minute): 95 Rhythm: + sinus with SA ECG Intervals/blocks: + Normal QRS, + Normal IN and + Normal QT-c ECG ST segments: + Normal ST segments MDM Narrative Vital signs stable. Imaging shows progression of the peritoneal carcinomatosis. Labs show acute kidney injury. Labs show hemoglobin 4.8. Hemoccult from the ostomy bag is was positive. Patient was noncompliance bolus and drip. Spoke with [facility] hospitalist team who stated to admit to Dr. Florence Impression & Plan Anemia, DULCE MARIA (acute kidney injury) Discharge Plan Visit Data Chief Complaint: Weakness Stated Complaint: DISORIENTED, WEAK, HAD PARACENTESIS YESTERDAY ED Provider: Tuan Garay Discharge Problem: Anemia, DULCE MARIA (acute kidney injury) Patient Disposition: Admitted As Inpatient Forms Stand Alone Forms: [facility] Prescriptions Prescriptions: No Action amoxicillin 500 mg capsule 2,000 mg PO ONCE PRN (Reason: 30 to 60 mons prior to dental procedure) RF: 0 warfarin 1 mg tablet 3 mg PO .as directed RF: 0 verapamil 240 mg capsule,ext rel. pellets 24 hr 360 mg PO DAILY RF: 0 (DME) [employer] Ultra Blue Test Strip Strip See Dose Instructions .ROUTE .MEDSUPPLY Qty: 25 RF: 5 atorvastatin 20 mg tablet 20 mg PO DAILY Qty: 90 RF: 3 tramadol 50 mg tablet 25 mg PO Q8H PRN (Reason: pain) Qty: 45 RF: 0 magnesium oxide 400 mg magnesium capsule 400 mg PO DAILY RF: 0 multivitamin tablet 1 tab PO DAILY RF: 0 cholecalciferol (vitamin D3) 5,000 unit tablet 5,000 units PO DAILY RF: 0 warfarin 1 mg tablet 2 mg PO .as directed RF: 0 (DME) lancets [OneTouch [employer]ica Lancets] 33 gauge misc See Rx Instructions .ROUTE .MEDSUPPLY Qty: 100 RF: 0 acetaminophen [Tylenol Extra Strength] 500 mg tablet 500 mg PO Q6H PRN (Reason: Pain) RF: 0 ycdyinvbek-ncjxmarnuptua-azdw 50-325-40 mg capsule 1 cap PO Q4H PRN (Reason: headache) RF: 0 losartan [Cozaar] 100 mg tablet 100 mg PO DAILY RF: 0 Referrals Referrals: Baron Shi DO [Primary Care Provider] - Discharge Problem: Anemia Qualifiers: Anemia type: unspecified type Qualified Code(s): D64.9 - Anemia, unspecified
--- NOTE | 2021-11-21 10:55 | XRay Report ---
XR chest 1V portable HISTORY: SEPSIS COMPARISON: Chest 02/13/2016. FINDINGS: No pneumothorax. Trace bilateral pleural effusions. The heart is mildly enlarged. There is mild central pulmonary vascular congestion without overt edema. A few small linear densities within t he left midlung zone and right lung base favor subsegmental atelectasis or scarring. Otherwise, no fo elizabeth lung consolidations to suggest pneumonia. There are poststernotomy changes and left-sided pacemak er. IMPRESSION: Mild cardiomegaly with trace bilateral pleural effusions and mild pulmonary vascular congestion. ACT 112: Negative or not required by law. Electronically signed by: Bi Lujan M.D. 11/21/2021 10:54 AM
[2021-11-21 11:08] LABS: Partial Thromboplastin Ratio 0.9; Partial Thromboplastin Time 25.1 Seconds (21.0-31.0); Prothrombin Time 10.8 Seconds (9.0-12.0)
[2021-11-21 11:17] LABS: Acetaminophen 10 ug/ml (10-30); Salicylate < 3.0 mg/dl (3.0-30)
[2021-11-21 11:18] LABS: Albumin Globulin Ratio 1.3 (0.9-2); Albumin Level 3.1 gm/dl (3.4-5.0); BUN Creatinine Ratio 29.6 (10-20); Bilirubin,Total 0.4 mg/dl (0.2-1.0); Creatinine Clr Calc Pharmacy 28.3 ml/min; Est GFR (African American) 34.9 ml/min; Est GFR (Non-African American) 30.1 ml/min; Globulin 2.4 gm/dl (2.5-4.0); Magnesium 2.2 mg/dl (1.7-2.4); Potassium 4.8 mmol/L (3.5-5.1); Total Protein 5.5 gm/dl (6.0-8.3)
[2021-11-21 11:24] LABS: Troponin I High Sensitivity 15.6 pg/ml (0-14)
[2021-11-21 11:35] LABS: Hematocrit (blood only) 14.5 % (37-47); Hemoglobin 4.8 g/dL (12.0-16.0); Mean Corpuscular Hemoglobin 31.2 pg (25-34); Mean Corpuscular Hgb Conc 33.1 g/dL (32-36); Mean Corpuscular Volume 94.2 fL (80-100); Mean Platelet Volume 8.8 fL (7.4-10.4); Platelet Count 399 K/uL (130-400); RDW Coefficient of Variation 14.5 % (11.5-14.5); RDW Standard Deviation 48.7 fL (36.4-46.3); Red Blood Count 1.54 M/uL (4.2-5.4); White Blood Count 12.18 K/uL (4.8-10.8)
[2021-11-21] MEDS ORDERED: SODIUM CHLORIDE 0.9% 250 ML IV PRN ×3 (11:36→23:56)
[2021-11-21 11:49] LABS: Basophils # (auto) 0.01 K/uL (0-0.2); Basophils % (auto) 0.1 %; Hypochromasia Present; Immature Granulocytes # (auto) 0.08 K/uL (0.00-0.02); Immature Granulocytes % (auto) 0.7 %; Lymphocytes # (auto) 1.56 K/uL (1.2-3.4); Lymphocytes % (auto) 12.8 %; Monocytes # (auto) 1.17 K/uL (0.11-0.59); Monocytes % (auto) 9.6 %; Neutrophils # (auto) 9.36 K/uL (1.4-6.5); Neutrophils % (auto) 76.8 %
[2021-11-21 11:59] LABS: Appearance Urine Clear (Clear); Bilirubin Urine Negative (Negative); Blood Urine Negative (Negative); Color Urine Yellow; Glucose Urine UA Negative (Negative); Ketones Urine Negative (Negative); Leukocyte Esterase Urine Negative (Negative); Nitrite Urine Negative (Negative); Protein Urine Negative (Negative); Specific Gravity Urine 1.016 (1.000-1.030); Urobilinogen Urine Negative (Negative)
--- NOTE | 2021-11-21 12:06 | CT Scan Report ---
ABDOMEN AND PELVIS CT WITHOUT CONTRAST CT DOSE: 1489.25 mGy.cm HISTORY: weakness TECHNIQUE: Multiaxial CT images of the abdomen and pelvis were performed without contrast. A dose lo wering technique was utilized adhering to the principles of ALARA. COMPARISON STUDY: Abdomen and pelvis CT 10/05/2021. FINDINGS: Stable 4 mm nodule within the left lower lobe on image 30. There are mild dependent changes seen at the lung bases. No pneumoperitoneum. No pneumatosis. Posterior decompression fusion with ped icle screws and rods again noted within the lumbar spine. There are poststernotomy changes. Pacemaker wires are noted. The heart remains mildly enlarged. There is a small hiatus hernia. Cholelithiasis. No hepatic or splenic masses identified. Normal right adrenal gland. The left adrenal gland appears s urgically absent. No retroperitoneal lymphadenopathy. Mild calcified plaque within the normal caliber abdominal aorta. The bladder is not well-distended but appears unremarkable. Colonic diverticulosis. No evidence for acute diverticulitis. No bowel wall thickening or obstruction. There is a double bar rel colostomy within the mid transverse colon at the midline. There is associated large parastomal he rnia containing fat, fluid, and multiple soft tissue nodules consistent with peritoneal carcinomatosi s. Multiple additional soft tissue nodules are seen within the omentum and peritoneal lining. This is consistent with peritoneal carcinomatosis. Overall, this has progressed in the interval. A small niyah unt of scattered ascites has slightly improved. The left suprarenal/upper quadrant hyperdense soft ti ssue nodule is again noted and measures 11 mm. No hydronephrosis. IMPRESSION: 1. Interval progression of the peritoneal carcinomatosis demonstrated by increase in the soft tissue nodularity/caking at the omentum. 2. Small amount of ascites which has slightly improved. 3. Cholelithiasis. 4. No bowel wall thickening or obstruction. 5. Additional findings as described above. ACT 112: Negative or not required by law. Electronically signed by: Bi Lujan M.D. 11/21/2021 12:04 PM
--- NOTE | 2021-11-21 12:08 | CT Scan Report ---
HEAD CT NONCONTRAST CT DOSE: HISTORY: weakness TECHNIQUE: Multiaxial CT images of the head were performed without the use of intravenous contrast. A utomated exposure control was utilized for this study. A dose lowering technique was utilized adheri ng to the principles of ALARA. Comparison: Head CT 10/19/2021. Findings: The paranasal sinuses and mastoid air cells are clear. The calvarium and skull base are int act. The ventricles and sulci are within normal limits. There is no mass, hematoma, midline shift, or acute infarct. Impression: No acute intracranial abnormality. ACT 112: Negative or not required by law. Electronically signed by: Bi Lujan M.D. 11/21/2021 12:07 PM
[2021-11-21] MEDS ORDERED: PANTOPRAZOLE BOLUS/DRIP 1 EA IV STA (12:26)
[2021-11-21] MEDS ORDERED: PANTOprazole 80 MG in DEXTROSE 5% 100 ML IV ONE (12:26)
--- NOTE | 2021-11-21 12:32 | History & Physical Report ---
Date of Service November 21, 2021 History of Present Illness Primary Care Provider: Baron Shi, DO Allergies Allergy/AdvReac Type Severity Reaction Status Date / Time citalopram Allergy Intermediate ? HIVES Verified 11/20/21 12:32 codeine Allergy Intermediate HIVES, Verified 11/20/21 12:32 NAUSEA/VOMITING adhesive Allergy Mild Redness of Verified 11/20/21 12:32 Skin dexbrompheniramine Allergy Unknown Unknown Verified 11/20/21 12:32 pregabalin Allergy Unknown unknown Verified 11/20/21 12:32 triprolidine Allergy Unknown Unknown Verified 11/20/21 12:32 metformin AdvReac Intermediate diarrhea Verified 11/20/21 12:32 pseudoephedrine AdvReac Intermediate hives Verified 11/20/21 12:32 brompheniramine AdvReac Mild hives Verified 11/20/21 12:32 nabumetone AdvReac Mild DIARRHEA Verified 11/20/21 12:32 raloxifene AdvReac Mild DISORIENTED Verified 11/20/21 12:32 topiramate AdvReac Mild DISORIENTED Verified 11/20/21 12:32 amitriptyline AdvReac Unknown DISORIENTED Verified 11/20/21 12:32 morphine AdvReac Unknown BURNING IN Verified 11/20/21 12:32 BACK AREA Home Medications Medication Instructions Recorded Confirmed Type cholecalciferol (vitamin D3) 125 5,000 units PO DAILY tab 01/10/19 11/20/21 History mcg (5,000 unit) tablet magnesium oxide 400 mg PO DAILY cap 01/10/19 11/20/21 History multivitamin 1 tab PO DAILY 01/10/19 11/20/21 History lancets 33 gauge (OneTouch Delyahaira #100 ea 10/04/19 11/20/21 Rx Lancets) amoxicillin 500 mg capsule 2,000 mg PO ONCE PRN cap 04/29/20 11/20/21 History warfarin 1 mg tablet 2 mg PO .as directed tab 05/08/20 11/20/21 History warfarin 1 mg tablet 3 mg PO .as directed tab 05/08/20 11/20/21 History blood sugar diagnostic (OneTouch #25 ea 08/25/20 11/20/21 Rx Ultra Blue Test Strip) verapamil 240 mg 24 hr 360 mg PO DAILY cap 07/03/21 11/20/21 History capsule,extended release atorvastatin 20 mg tablet 20 mg PO DAILY #90 tab 07/28/21 11/20/21 Rx acetaminophen 500 mg tablet 500 mg PO Q6H PRN 10/08/21 11/20/21 History (Tylenol Extra Strength) tramadol 50 mg tablet 25 mg PO Q8H PRN #45 tab 10/12/21 11/20/21 Rx yzriugnbpy-cbynjmwenczop-zhtxhnuh 1 cap PO Q4H PRN 10/15/21 11/20/21 History 50 mg-325 mg-40 mg capsule losartan 100 mg tablet (Cozaar) 100 mg PO DAILY 10/15/21 11/20/21 History Past Med/Surg History Medical History Aortic atherosclerosis Asthma Atrial fibrillation (~2015) Followed by [facility] [place] Back pain, chronic Cardiac pacemaker Chronic anticoagulation Managed by [facility] Chronic osteoarthritis Compression fracture of thoracic vertebra Coronary artery calcification Diverticulitis s/p colostomy Fibromyalgia Heart failure Hematuria, gross Hepatic steatosis Hyperlipidemia Hypertension Insomnia Migraine with aura Obstructive sleep apnea Rheumatic mitral valve disease Type 2 diabetes mellitus Vitamin D deficiency Surgical History H/O colonoscopy H/O hemorrhoidectomy H/O hysterectomy with oophorectomy age 42- due to ovarian cyst and abnormal bleeding H/O mitral valve replacement (~2015) 04/23/[address] [facility] Biocor 29 mm valve. H/O tooth extraction History of appendectomy History of back surgery lumbar surgery with Dr. Chaparro in 2011 History of bilateral knee replacement left knee- 2003, right knee- 2008 History of bunionectomy History of creation of ostomy (~2013) Diverting Transverse Loop Colostomy History of surgery on arm Hx of tonsillectomy Family History Unknown Diabetes Son cerebral palsey Mother COPD (chronic obstructive pulmonary disease) Diabetes Cardiovascular disease Hypertension Cancer Bone Daughter Breast cancer Sister Breast cancer unsure of primary site Father Malignant neoplasm of esophagus Arteriosclerotic cardiovascular disease Diabetes Heart disease Hypertension Brother Prostate cancer Sister Breast cancer Social History Smoking Status: Never smoker Second Hand Exposure: No; Hx Alcohol Use: No Hx Substance Use: No Preferred Language: Irish Communication Ability: Effective Visual Impairment: Limited Hearing Ability: Normal Union Representative Required: No Beliefs That Will Affect Care: None marital status: Current Living Situation: Spouse current occupational status: retired 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; [employer] How many Children do You have: 3 How many Children do You have Comment: son passed at age 18 Feels Safe at Home: Yes Childhood Exposure to Second-Hand Smoke: Yes caffeine: No during the past year weight has: remained stable Dental Care, Regularly: Yes Physical Activity Frequency: 1-2 Times per Week Seatbelt Use: always Sunscreen Use: Yes Results & Data Results & Data ([facility]) Vital Signs (Past 12 Hours) Vital Signs Temp Pulse Pulse Resp BP BP Pulse Ox 11/21/21 12:00 97 H 17 103/58 L 95 11/21/21 10:40 92 H 20 97/48 L 96 11/21/21 10:03 36.8 C 102 H 18 98/53 L 96 PG Care Time/CCT Total # of Minutes Spent Total Time Spent with Patient: Total time spent is greater than 50% in coordination of care (as documented) at patient's floor/unit and/or counseling patient: Coding
--- NOTE | 2021-11-21 12:49 | History & Physical Report ---
Date of Service November 21, 2021 Assessment & Plan (1) Anemia: Plan: - Hgb 4.8, was 12.3 just one month ago. - CT A/P does not have evidence of source of bleed, no retroperitoneal hematoma noted. No recent falls, trauma. Nonbloody emesis, has had occasional scant amounts of bright red blood in ostomy, per this is not an uncommon finding for patient and amount/frequency has not increased. Without any other obvious source, suspect the likely case for her hgb drop is from the bloody output she and family have been noticing. - Patient will require transfusion, likely needing multiple units of blood. 1 unit has been started in ED, will order at H/H 1 hour after completion of first unit, will order additional units to transfuse overnight to reach stable hemoglobin >7. If initial H&H shows improvement, continue to monitor H/H every 4 hours for now. - Continue to monitor BP, as well as for signs of volume overload. - PPI drip with bolus started in ED, will continue this. - NSS at 125cc/hr. (2) Hyponatremia: Plan: - Na 127, likely in the setting of minimal p.o. intake, emesis. Sodium this low could certainly contribute to her complaints of generalized weakness, confusion. - Anticipate it will respond to IVF, continue to monitor on a.m. labs to ensure it is increasing appropriately. (3) Metabolic encephalopathy: Plan: - Current differential includes hyponatremia versus versus poor perfusion in setting of severe anemia. The patient has not been hypoxic here in our ED. No history of hepatic disease, ammonia WNL. Do not suspect infection. - With reports of confusion, forgetfulness since last evening after having paracentesis with removal of 9 L. Also in setting of hyponatremia, suspect these are both contributing. - Upon my exam, patient is alert and oriented to self and place, confused as to what month it is, told me it was August. She is quite fatigued and asks me to speak with family concerning what brought her in, but is able to answer specific questions appropriately for me when asked. - Continue to monitor response to blood products, correlate with sodium on a.m. labs. - Does have an elevated WBC of 12.18, lactate 0.9. Afebrile, no obvious source of infection on labs/imaging performed. Ordered procal to r/o infection, it is 0.21. Fluid from paracentesis yesterday was sent for culture, cultures also obtained and sent here. (4) Elevated troponin: Plan: - 15.6, suspect it is elevated due to her anemia, tachycardia and not reflective of cardiac event. - Repeated several hours later, 16.9. No concern for ACS or demand ischemia at this time with minimally elevated hs trops. (5) DULCE MARIA (acute kidney injury): Plan: - Likely due to dehydration, as patient has been too nauseous and vomiting this past week due to her ascites. - Received IVF in ED, also receiving fluids and blood products on floor for severe anemia w/ hypotension. Continue to monitor renal function on a.m. labs. - For now, avoid nephrotoxins and renally dose medications as able. (6) Carcinoma of left adrenal gland: Plan: - S/p left adrenalectomy, with peritoneal carcinomatosis. - Currently being treated by Dr. Low. (7) Hypertension: Plan: - Hold verapamil, losartan for now due to borderline hypotension/DULCE MARIA. (8) Atrial fibrillation: Plan: - Maintained on warfarin, 2 mg all days except Tuesday, when she takes 3 mg. This has been held since Tuesday in anticipation of paracentesis, will obviously continue to hold this due to ongoing blood loss. - MRI compatible pacemaker present. (9) Type 2 diabetes mellitus: Plan: - Diet controlled, no acute needs. (10) Hyperlipidemia: Plan: - Continue atorvastatin 20 mg daily. (11) Cardiac pacemaker: Plan: - Placed in March 2016 at time of mitral valve replacement. - MRI compatible. (12) H/O mitral valve replacement: Plan: - Admit to PCU. - SCDs for DVT PPx, chemoppx contraindicated due to acute bleed. - Full code. History of Present Illness Primary Care Provider: Baron Shi DO Patient is an 81-year-old female with past medical history significant for renal carcinoma s/p adrenalectomy, hypertension, hyperlipidemia, and A. fib presenting today with increased weakness and confusion at home. Patient had a therapeutic paracentesis yesterday, 11/20 in which 9L of fluid was removed and patient received 150 mL of albumin. She was initially quite fatigued after the procedure, and became increasingly confused as the evening progressed. She had difficulty keeping her eyes open an maintaining conversation. This morning, she was unable to tell her family her name or birthday. They brought her to the ED for further evaluation of this. She has had ongoing generalized weakness, and nausea with some nonbloody emesis this week, which was thought to be due to large volume malignant ascites and has resolved after her paracentesis. No fever/chills, no recent falls, chest pain, cough, shortness of breath, abdominal pain. She does occasionally have minimal blood noted in ostomy, this is not new for her, and it has been unchanged over the past week. Of note, patient was supposed to have her paracentesis this past Tuesday, however her INR was 4.0 at that time, therefore it was deferred until yesterday and her warfarin has been held. Her INR yesterday morning was 2.4, so has been reports she received vitamin K in order to proceed with paracentesis. In ED, she is borderline hypotensive at 103/58, HR 90s, otherwise VS wnl. Labs significant for WBC 12.18, lactate 0.9. Hgb 4.8, BUN 47, Cr 1.59, sodium 127, hsTrop 15.6. CT A/P with no evidence of bleeding, did show interval progression of the peritoneal carcinomatosis demonstrated by increase in the soft tissue nodularity/caking at the omentum, small ascites with slight improvement. Head CT unremarkable. CXR with mild cardiomegaly and trace pleural effusion, pulmonary vascular congestion. Allergies Allergy/AdvReac Type Severity Reaction Status Date / Time citalopram Allergy Intermediate ? HIVES Verified 11/21/21 12:35 codeine Allergy Intermediate HIVES, Verified 11/21/21 12:35 NAUSEA/VOMITING adhesive Allergy Mild Redness of Verified 11/21/21 12:35 Skin dexbrompheniramine Allergy Unknown Unknown Verified 11/21/21 12:35 pregabalin Allergy Unknown unknown Verified 11/21/21 12:35 triprolidine Allergy Unknown Unknown Verified 11/21/21 12:35 metformin AdvReac Intermediate diarrhea Verified 11/21/21 12:35 pseudoephedrine AdvReac Intermediate hives Verified 11/21/21 12:35 brompheniramine AdvReac Mild hives Verified 11/21/21 12:35 nabumetone AdvReac Mild DIARRHEA Verified 11/21/21 12:35 raloxifene AdvReac Mild DISORIENTED Verified 11/21/21 12:35 topiramate AdvReac Mild DISORIENTED Verified 11/21/21 12:35 amitriptyline AdvReac Unknown DISORIENTED Verified 11/21/21 12:35 morphine AdvReac Unknown BURNING IN Verified 11/21/21 12:35 BACK AREA Home Medications Medication Instructions Recorded Confirmed Type cholecalciferol (vitamin D3) 125 5,000 units PO QDL tab 01/10/19 11/21/21 History mcg (5,000 unit) tablet magnesium oxide 400 mg PO QDD cap 01/10/19 11/21/21 History multivitamin 1 tab PO QDB 01/10/19 11/21/21 [facility] 11/20/21 Rx Lancets) amoxicillin 500 mg capsule 2,000 mg PO ONCE PRN cap 04/29/20 11/21/21 History warfarin 1 mg tablet See Rx Instructions .ROUTE 05/08/20 11/21/21 History .COMPLEX tab blood sugar diagnostic ([facility] #25 ea 08/25/20 11/20/21 Rx Ultra Blue Test Strip) acetaminophen 500 mg tablet 500 mg PO Q6H PRN 10/08/21 11/21/21 History (Tylenol Extra Strength) tramadol 50 mg tablet 25 mg PO Q8H PRN #45 tab 10/12/21 11/21/21 Rx ulvguvoqiu-rktardltozlzj-onrizwce 1 cap PO Q4H PRN 10/15/21 11/21/21 History 50 mg-325 mg-40 mg capsule losartan 100 mg tablet (Cozaar) 100 mg PO QDD 10/15/21 11/21/21 History atorvastatin 20 mg tablet 20 mg PO QDL 11/21/21 11/21/21 History ondansetron HCl 8 mg tablet 8 mg PO Q8H PRN 11/21/21 11/21/21 History prochlorperazine maleate 10 mg 10 mg PO Q6H PRN 11/21/21 11/21/21 History tablet verapamil 360 mg 24 hr 360 mg PO QDB 11/21/21 11/21/21 History capsule,extended release Past Med/Surg History Medical History Aortic atherosclerosis Asthma Atrial fibrillation (~2015) [place] [facility] [place], chronic Cardiac pacemaker Chronic anticoagulation [place] [facility] Chronic osteoarthritis Compression fracture of thoracic vertebra Coronary artery calcification Diverticulitis s/p colostomy Fibromyalgia Heart failure Hematuria, gross Hepatic steatosis Hyperlipidemia Hypertension Insomnia Migraine with aura Obstructive sleep apnea Rheumatic mitral valve disease Type 2 diabetes mellitus Vitamin D deficiency Surgical History H/O colonoscopy H/O hemorrhoidectomy H/O hysterectomy with oophorectomy age 42- due to ovarian cyst and abnormal bleeding H/O mitral valve replacement (~2015) 04/23/[address] [facility] [employer] Biocor 29 mm valve. H/O tooth extraction History of appendectomy History of back surgery lumbar surgery with Dr. Chaparro in 2011 History of bilateral knee replacement left knee- 2003, right knee- 2008 History of bunionectomy History of creation of ostomy (~2013) Diverting Transverse Loop Colostomy History of surgery on arm Hx of tonsillectomy Family History Unknown Diabetes Son cerebral palsey Mother COPD (chronic obstructive pulmonary disease) Diabetes Cardiovascular disease Hypertension Cancer Bone Daughter Breast cancer Sister Breast cancer unsure of primary site Father Malignant neoplasm of esophagus Arteriosclerotic cardiovascular disease Diabetes Heart disease Hypertension Brother Prostate cancer Sister Breast cancer Social History Smoking Status: Never smoker Second Hand Exposure: No; Do You Dip or Chew Tobacco: No; Hx Alcohol Use: No Hx Substance Use: No Preferred Language: Comoran Communication Ability: Effective Visual Impairment: Limited Hearing Ability: Normal Tax Assessor Required: No Beliefs That Will Affect Care: None marital status: Current Living Situation: Spouse current occupational status: retired 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; [place] [email or web address] How many Children do You have: 3 How many Children do You have Comment: son passed at age 18 Feels Safe at Home: No Is there a partner from a previous relationship who is making you feel unsafe now?: No Any Concerns about Your Family Situation: No Would You Like to Speak to Someone About Your Situation: No Safety Concerns: Feels Safe At This Time Childhood Exposure to Second-Hand Smoke: Yes caffeine: No during the past year weight has: remained stable Dental Care, Regularly: Yes Physical Activity Frequency: 1-2 Times per Week Seatbelt Use: always Sunscreen Use: Yes Review of Systems Review of Systems: Constitutional: Generalized weakness, fatigue this week; no fever/chills, myalgias, anorexia, night sweats Eyes: No diplopia, no worsening or blurred vision ENT: normal hearing, no trouble swallowing Respiratory: No cough, sputum, dyspnea at rest or on exertion Cardiovascular: No chest pain, tightness or palpitations Abdomen: nausea, nonbloody emesis intermittently throughout the week; without hematemesis, melena, hematochezia : Denies dysuria, hematuria, increased urgency/frequency, urinary retention Musculoskeletal: No joint pain, calf pain, swelling Neurologic: No weakness, numbness/tingling, or balance problems Psychiatric: No anxiety or depression Skin: No rash or itch Physical Exam Physical Exam: General: awake, alert, no apparent distress Head: Normocephalic, atraumatic ENT: PERRL, EOMI, no pharyngeal exudate, mucous membranes moist Chest: Clear to auscultation, on room air, no adventitious breath sounds Cardiac: Regular rate and rhythm, no murmur, no JVD, normal peripheral pulses, good capillary refill Abdominal: NABS x 4 quadrants, soft, nontender to palpation, no rebound, guarding or tenderness Extremities: Normal inspection, no peripheral edema or erythema, calfs nontender to palpation Psych: Normal mood and affect Neuro: AAO x 3, strength intact bilaterally and rated 5/5, no motor deficits, speech is clear, no peripheral sensory deficits Skin: no rash or erythema Results & Data Results & Data ([facility]) Vital Signs (Past 12 Hours) Vital Signs Temp Pulse Pulse Resp BP BP Pulse Ox 11/21/21 12:00 97 H 17 103/58 L 95 11/21/21 10:40 92 H 20 97/48 L 96 11/21/21 10:03 36.8 C 102 H 18 98/53 L 96 Laboratory Results Abnormal lab results 11/21/21 11/21/21 11/21/21 Range/Units 10:40 10:40 10:40 WBC 12.18 H (4.8-10.8) K/uL RBC 1.54 L (4.2-5.4) M/uL Hgb 4.8 L* (12.0-16.0) g/dL Hct 14.5 L* (37-47) % RDW Std Deviation 48.7 H (36.4-46.3) fL Neut # (Auto) 9.36 H (1.4-6.5) K/uL Logan # (Auto) 1.17 H (0.11-0.59) K/uL Immature Gran # (Auto) 0.08 H (0.00-0.02) K/uL Sodium 127 L (136-145) mmol/L Chloride 97 L (98-107) mmol/L BUN 47 H (6-23) mg/dl Creatinine 1.59 H (0.6-1.2) mg/dl BUN/Creatinine Ratio 29.6 H (10-20) Calcium 8.0 L (8.5-10.1) mg/dl Troponin I High Sens 15.6 H (0-14) pg/ml Total Protein 5.5 L (6.0-8.3) gm/dl Albumin 3.1 L (3.4-5.0) gm/dl Globulin 2.4 L (2.5-4.0) gm/dl Salicylates < 3.0 L (3.0-30) mg/dl Crossmatch 11/21/21 Range/Units 11:45 WBC (4.8-10.8) K/uL RBC (4.2-5.4) M/uL Hgb (12.0-16.0) g/dL Hct (37-47) % RDW Std Deviation (36.4-46.3) fL Neut # (Auto) (1.4-6.5) K/uL Logan # (Auto) (0.11-0.59) K/uL Immature Gran # (Auto) (0.00-0.02) K/uL Sodium (136-145) mmol/L Chloride (98-107) mmol/L BUN (6-23) mg/dl Creatinine (0.6-1.2) mg/dl BUN/Creatinine Ratio (10-20) Calcium (8.5-10.1) mg/dl Troponin I High Sens (0-14) pg/ml Total Protein (6.0-8.3) gm/dl Albumin (3.4-5.0) gm/dl Globulin (2.5-4.0) gm/dl Salicylates (3.0-30) mg/dl Crossmatch See Detail Diagnostic Findings Chest X-Ray 11/21/21 10:10 XR chest 1V portable HISTORY: SEPSIS COMPARISON: Chest 02/13/2016. FINDINGS: No pneumothorax. Trace bilateral pleural effusions. The heart is mildly enlarged. There is mild central pulmonary vascular congestion without overt edema. A few small linear densities within the left midlung zone and right lung base favor subsegmental atelectasis or scarring. Otherwise, no focal lung consolidations to suggest pneumonia. There are poststernotomy changes and left- sided pacemaker. IMPRESSION: Mild cardiomegaly with trace bilateral pleural effusions and mild pulmonary vascular congestion. ACT 112: Negative or not required by law. Electronically signed by: Bi Lujan M.D. 11/21/2021 10:[address] 11/21/21 10:[address] DOSE: HISTORY: weakness TECHNIQUE: Multiaxial CT images of the head were performed without the use of intravenous contrast. Automated exposure control was utilized for this study. A dose lowering technique was utilized adhering to the principles of ALARA. Comparison: Head CT 10/19/2021. Findings: The paranasal sinuses and mastoid air cells are clear. The calvarium and skull base are intact. The ventricles and sulci are within normal limits. There is no mass, hematoma, midline shift, or acute infarct. Impression: No acute intracranial abnormality. ACT 112: Negative or not required by law. Electronically signed by: Bi Lujan M.D. 11/21/2021 12:07 PM Abdomen/Pelvis CT 11/21/21 11:[address] WITHOUT CONTRAST CT DOSE: 1489.25 mGy.cm HISTORY: weakness TECHNIQUE: Multiaxial CT images of the abdomen and pelvis were performed without contrast. A dose lowering technique was utilized adhering to the principles of ALARA. COMPARISON STUDY: Abdomen and pelvis CT 10/05/2021. FINDINGS: Stable 4 mm nodule within the left lower lobe on image 30. There are mild dependent changes seen at the lung bases. No pneumoperitoneum. No pneumatosis. Posterior decompression fusion with pedicle screws and rods again noted within the lumbar spine. There are poststernotomy changes. Pacemaker wires are noted. The heart remains mildly enlarged. There is a small hiatus hernia. Cholelithiasis. No hepatic or splenic masses identified. Normal right adrenal gland. The left adrenal gland appears surgically absent. No retroperitoneal lymphadenopathy. Mild calcified plaque within the normal caliber abdominal aorta. The bladder is not well-distended but appears unremarkable. Colonic diverticulosis. No evidence for acute diverticulitis. No bowel wall thickening or obstruction. There is a double barrel colostomy within the mid transverse colon at the midline. There is associated large parastomal hernia containing fat, fluid, and multiple soft tissue nodules consistent with peritoneal carcinomatosis. Multiple additional soft tissue nodules are seen within the omentum and peritoneal lining. This is consistent with peritoneal carcinomatosis. Overall, this has progressed in the interval. A small amount of scattered ascites has slightly improved. The left suprarenal/upper quadrant hyperdense soft tissue nodule is again noted and measures 11 mm. No hydronephrosis. IMPRESSION: 1. Interval progression of the peritoneal carcinomatosis demonstrated by increase in the soft tissue nodularity/caking at the omentum. 2. Small amount of ascites which has slightly improved. 3. Cholelithiasis. 4. No bowel wall thickening or obstruction. 5. Additional findings as described above. ACT 112: Negative or not required by law. Electronically signed by: Bi Lujan M.D. 11/21/2021 12:04 PM ECG Additional Comments: Sinus rhythm with marked sinus arrhythmia Pulmonary disease pattern Left anterior fascicular block Left ventricular hypertrophy with QRS widening Abnormal ECG When compared with ECG of 14-FEB-2016 07:13, Premature atrial complexes are no longer Present Left anterior fascicular block is now Present Nonspecific T wave abnormality no longer evident in Inferior leads Nonspecific T wave abnormality has replaced inverted T waves in Anterior leads. Code Status & VTE Plan Code Status Full code. Supervising Physician Co-Signing Physician Notes I personally examined the patient and verified all guillen points of history and exam, discussed case, and agree with decision making with Tito FRANKLIN mild stomach pain. occassional red blood in ostomy bag but nothing overt. paracentesis yesterday. vitals noted, very sleepy but nad otherwise (+) epigastric tenderness no guarding/rebound. remainder of abdomen benign severe anemia - no overt hemorrhage, Hgb ~12 a month ago. bili OK doubt hemolysis. no retroperitoneal/muscular hematomas etc noted. bigggest suspicion therefore would be GI bleeding, probably exacerbated by coagulopathy. transfusing, follow. GI input re ?benefit of scopes. INR reversed. on protonix gtt DULCE MARIA - from above. anticipate improvement coagulopathy - likley was from poor PO intake - which in turn was from pain. INR corrected. after review - on coumadin due to afib secondary to mitral disease (initially on discussions with it sounded like she might have been on coumadin due to mechanical mitral valve, but is bioprosthetic) peritoneal carinomatosis - prognosis poor, but were going to give trial to keytruda. therefore still aggressive care for now otherwise as above PG Care Time/CCT Total # of Minutes Spent Total Time Spent with Patient: Total time spent is greater than 50% in coordination of care (as documented) at patient's floor/unit and/or counseling patient: Coding Level of Care Code 95155 Initial Inpt Care Lvl 3 Diagnoses Carcinoma of left adrenal gland C74.92 Anemia D64.9 Anemia type: unspecified type DULCE MARIA (acute kidney injury) N17.9 Hypertension I10 Atrial fibrillation I48.91 Type 2 diabetes mellitus E11.9 Hyponatremia E87.1 Hyperlipidemia E78.5 Elevated troponin R77.8 Cardiac pacemaker Z95.0 H/O mitral valve replacement Z95.2 Metabolic encephalopathy G93.41 (1) Anemia Anemia type: unspecified type Qualified Code(s): D64.9 - Anemia, unspecified
[2021-11-21] MEDS: SODIUM CHLORIDE 0.9% 500 ML IV SCH ×2 (13:01→16:19)
[2021-11-21] MEDS: PANTOprazole 40 MG in DEXTROSE 5% 100 ML IV SCH ×3 (13:39→23:43)
[2021-11-21] MEDS ORDERED: traMADol HCL 50 MG TABLET PO PRN (14:28)
[2021-11-21] MEDS ORDERED: ONDANSETRON INJ 2 MG/ML 2 ML VIAL IV PRN (14:28)
[2021-11-21] MEDS ORDERED: POLYETHYLENE (MIRALAX) 17 GM PACK PO PRN (14:28)
[2021-11-21] MEDS ORDERED: PROCHLORPERAZINE 5 MG in SYRINGE 4 ML IV PRN (14:28)
[2021-11-21] MEDS ORDERED: BUTALBITAL/ACETAMIN/CAFFEINE TAB PO PRN (15:00)
[2021-11-21] MEDS: MAGNESIUM OXIDE 400 MG TAB PO SCH (17:59)
[2021-11-21 19:40] LABS: Hemoglobin 7.3 g/dL (12.0-16.0)
[2021-11-21] MEDS: cefTRIAXone SODIUM 1,000 MG in DEXTROSE 5% 50 ML IV SCH (20:08)
[2021-11-21] MEDS: ATORVASTATIN 20 MG TAB PO SCH (20:09)
[2021-11-21] MEDS: ACETAMINOPHEN 500 MG TAB PO PRN (20:09)
[2021-11-21 23:51] LABS: Hematocrit (blood only) 20.7 % (37-47); Hemoglobin 6.8 g/dL (12.0-16.0)
[2021-11-22 01:19] LABS: BUN Creatinine Ratio 31.5 (10-20); Calcium 7.4 mg/dl (8.5-10.1); Creatinine Clr Calc Pharmacy 40.8 ml/min; Est GFR (African American) 55.8 ml/min; Est GFR (Non-African American) 48.1 ml/min; Potassium 4.7 mmol/L (3.5-5.1)
[2021-11-22] MEDS: PANTOprazole 40 MG in DEXTROSE 5% 100 ML IV SCH ×4 (04:16→21:42)
[2021-11-22 06:14] LABS: Basophils # (auto) 0.02 K/uL (0-0.2); Basophils % (auto) 0.2 %; Eosinophils # (auto) 0.02 K/uL (0-0.5); Eosinophils % (auto) 0.2 %; Hematocrit (blood only) 23.7 % (37-47); Hemoglobin 7.8 g/dL (12.0-16.0); Immature Granulocytes # (auto) 0.12 K/uL (0.00-0.02); Immature Granulocytes % (auto) 1.1 %; Lymphocytes # (auto) 1.01 K/uL (1.2-3.4); Lymphocytes % (auto) 9.7 %; Mean Corpuscular Hemoglobin 28.4 pg (25-34); Mean Corpuscular Hgb Conc 32.9 g/dL (32-36); Mean Corpuscular Volume 86.2 fL (80-100); Mean Platelet Volume 8.8 fL (7.4-10.4); Monocytes # (auto) 1.07 K/uL (0.11-0.59); Monocytes % (auto) 10.2 %; Neutrophils # (auto) 8.22 K/uL (1.4-6.5); Neutrophils % (auto) 78.6 %; Nucleated RBC # (auto) 0.11 K/uL (0-0); Nucleated RBC % (auto) 1.1 %; Platelet Count 303 K/uL (130-400); RDW Coefficient of Variation 18.9 % (11.5-14.5); RDW Standard Deviation 59.2 fL (36.4-46.3); Red Blood Count 2.75 M/uL (4.2-5.4); White Blood Count 10.46 K/uL (4.8-10.8)
[2021-11-22 06:32] LABS: BUN Creatinine Ratio 29.9 (10-20); Calcium 7.4 mg/dl (8.5-10.1); Creatinine Clr Calc Pharmacy 45.1 ml/min; Est GFR (African American) 63.5 ml/min; Est GFR (Non-African American) 54.8 ml/min; Potassium 4.5 mmol/L (3.5-5.1)
[2021-11-22 06:40] LABS: Anisocytosis Present; Polychromasia 1+; Target Cells 1+
[2021-11-22 07:01] LABS: Prothrombin Time 10.3 Seconds (9.0-12.0)
--- NOTE | 2021-11-22 07:44 | Hospitalist Progress Note ---
Date of Service November 22, 2021 Assessment & Plan (1) Anemia: Plan: 81 year old female w/ renal carcinoma s/p adrenalectomy, hypertension, hyperlipidemia, and A. fib presenting with increased weakness and confusion at home, found to have Hb of 4.8 ad admission. Patient had a therapeutic paracentesis on 11/20 (day prior to admision) in which 9L of fluid was removed and patient received 150 mL of albumin. - normocytic acute blood loss anemia with associated iron deficiency - 12.3 just one month ago. - CT A/P does not have evidence of source of bleed, no retroperitoneal hematoma noted. No recent falls, trauma. Nonbloody emesis, has had occasional scant amounts of bright red blood in ostomy - s/p 3 u prbc - Continue to monitor BP, as well as for signs of volume overload. - Continue PPI - IV fluids d/c'd. Net neg 750 mL this admission (2) Hyponatremia: Plan: - stable at 129, follow bmp (3) Metabolic encephalopathy: Plan: - resolved. in setting of ascites, considered SBP and will be treating w/ empiric rocephin and will likely need full 10 day course. Unfortunately, fluid analysis from 11/20 paracentesis was limited. (4) Elevated troponin: Plan: - minimally elevated hstrop (5) DULCE MARIA (acute kidney injury): Plan: - resolved (6) Carcinoma of left adrenal gland: Plan: - S/p left adrenalectomy, with peritoneal carcinomatosis. - Currently being treated by Dr. Low. (7) Hypertension: Plan: - Hold verapamil, losartan for now due to borderline hypotension (8) Atrial fibrillation: Plan: - Maintained on warfarin, 2 mg all days except Tuesday, when she takes 3 mg. This has been held since Tuesday in anticipation of paracentesis, will obviously continue to hold this due to ongoing blood loss. - MRI compatible pacemaker present. (9) Type 2 diabetes mellitus: Plan: - Diet controlled, no acute needs. (10) Hyperlipidemia: Plan: - Continue atorvastatin 20 mg daily. (11) Cardiac pacemaker: Plan: - Placed in March 2016 at time of mitral valve replacement. - MRI compatible. (12) H/O mitral valve replacement: Plan: - regular diet, no current IVF - Admit to PCU. - SCDs for DVT PPx, chemoppx contraindicated due to acute bleed. - Full code. Admission and Anticipated Discharge Date Admission Date: November 21, 2021 Supervising Physician Co-Signing Physician Notes I personally examined the patient and verified all guillen points of history and exam, discussed case, and agree with decision making with Dr Araya feeling much better. no significant pain vitals noted nad heent nc at mmm breathing unlabored no accessory muscles good effort skin no rashes no pallor or icterus severe anemia - no overt hemorrhage, Hgb ~12 a month ago. bili OK doubt hemolysis. no retroperitoneal/muscular hematomas etc noted. biggest suspicion therefore would be GI bleeding, probably exacerbated by coagulopathy. ipmroved nicely w transfusion - appreciate GI input. continue to monitor for now DULCE MARIA - from above. improved question of SBP - given AMS and ascites have to assume as such. on ceftriaxone. coagulopathy - likely was from poor PO intake - which in turn was from pain. INR corrected. after review - on coumadin due to afib secondary to mitral disease (initially on discussions with it sounded like she might have been on coumadin due to mechanical mitral valve, but is bioprosthetic) peritoneal carinomatosis - prognosis poor, but were going to give trial to keytruda. therefore still aggressive care for now otherwise as above Subjective Currently, has migraine w/ aura. Denies GI symptoms, bloody stool, or melena. States has hx of heart murmur, has had rheumatic fever during childhood. Has had mitral valve surgery. Review of Systems Review of Systems: All systems reviewed & are unremarkable except as noted in HPI & below Physical Exam Physical Exam: General: Grossly A&O. NAD. Cooperative. HEENT: Atraumatic, normocephalic. EOMI Pulm: Moderate inspiratory crackles at bases. No respiratory distress. Cardiac: RRR, -mrg. No murmur audible on my exam. Abdominal: Nontender, nondistended, soft. + ostomy. Results & Data Results & Data ([facility]) Vital Signs (Past 12 Hours) Vital Signs Temp Pulse Pulse Resp BP BP Pulse Ox 11/22/21 07:30 36.9 C 88 16 129/73 96 11/22/21 07:06 91 H 11/22/21 07:00 88 11/22/21 03:08 36.8 C 96 H 15 100/62 95 11/22/21 02:48 96 H 11/22/21 02:27 37.1 C 92 H 15 100/65 95 11/22/21 01:27 36.8 C 89 15 98/58 L 95 11/22/21 00:57 36.7 C 92 H 15 98/62 L 96 11/22/21 00:42 36.7 C 91 H 15 102/56 L 97 11/22/21 00:25 37.1 C 97 H 15 94/54 L 96 11/21/21 23:14 37.3 C 101 H 16 99/60 L 96 11/21/21 21:06 37.1 C Resident Activity Tracking Resident Involvement: Resident Care Provided Care Provided: Adult Hospital Medicine (1) Anemia Anemia type: unspecified type Qualified Code(s): D64.9 - Anemia, unspecified
[2021-11-22] MEDS: VERAPAMIL HCL 180 MG TABCR PO SCH (07:47)
[2021-11-22] MEDS: CHOLECALCIFEROL 5,000 UNITS 125 MCG TAB PO SCH (08:59)
[2021-11-22 09:03] LABS: Cortisol AM 20.25 mcg/dl (6.2-22.6)
[2021-11-22 09:12] LABS: Ferritin 68.9 ng/ml (8-388)
[2021-11-22] MEDS ORDERED: BUTALBITAL/ACETAMIN/CAFFEINE TAB PO ONE (09:15)
[2021-11-22 09:17] LABS: Folate (Folic Acid) 15.52 ng/ml (>5.38)
--- NOTE | 2021-11-22 13:33 | Electrocardiogram Report ---
Test Reason : Blood Pressure : / mmHG Vent. Rate : 095 BPM Atrial Rate : 095 BPM P-R Int : 160 ms QRS Dur : 118 ms QT Int : 352 ms P-R-T Axes : 084 -47 065 degrees QTc Int : 442 ms Sinus rhythm with occasional Premature atrial complexes Pulmonary disease pattern Left anterior fascicular block Left ventricular hypertrophy with QRS widening Abnormal ECG When compared with ECG of 14-FEB-2016 07:13, Left anterior fascicular block is now Present Nonspecific T wave abnormality Anterior leads no longer present Confirmed by Fawad Salazar ([id number]) on 11/22/2021 1:33:23 PM Referred By: REFERRED SELF Confirmed By:Fawad Salazar
--- NOTE | 2021-11-22 17:12 | Gastrointestinal Consultation ---
Date of Consultation November 22, 2021 Assessment & Plan (1) Abdominal carcinomatosis: anemia n/v confusion ascited Would treat ascites as if she has SBP in absence of a cell count on it. N/V and confusion resolved. Given 3-6 months to live would not put patient through invasive testing for workup of anemia unless she has rapid bleeding. The red blood does not seem enough to be causing it. Would cover with PPI for peptic disease. Monitor CBC daily as inpt and recommend weekly as outpt unless hospice is chosen. IBaron MD have spent 46 minutes of discrete time performing the activities of this visit which include but are not limited to review of the medical record, obtaining a history, physical exam, and entering information in the electronic record. History of Present Illness Reason for Consultation: anemia Attending Physician: Parvez Sorto, History of Present Illness cc problems post taking fluid off the abdomen HPI Pt with adrenal cancer with peritoneal mets given 3-6 months to live by oncology at [facility] admitted with weakness, confusion, n/v and anemia. Pt s/p paracenteis of 9 L 11/20/2021. Studies on fluid reportedly ordered but none in the chart. She has a colostomy secondary to diverticulitis and occosionally sees bright red blood in ostomy. She thinks she has had colonscopy in the past but no an EGD. Fe at 13.4% low, ferritin nl, Folate nl, b12 nl, cortisol normal, ammonia normal. Hgb was 4.8. CT a/p worsening peritoneal mets vs CT 09/2021. Pt ate almost an entire solid meal prior to me coming to see her Allergies Allergy/AdvReac Type Severity Reaction Status Date / Time citalopram Allergy Intermediate ? HIVES Verified 11/21/21 12:35 codeine Allergy Intermediate HIVES, Verified 11/21/21 12:35 NAUSEA/VOMITING adhesive Allergy Mild Redness of Verified 11/21/21 12:35 Skin dexbrompheniramine Allergy Unknown Unknown Verified 11/21/21 12:35 pregabalin Allergy Unknown unknown Verified 11/21/21 12:35 triprolidine Allergy Unknown Unknown Verified 11/21/21 12:35 metformin AdvReac Intermediate diarrhea Verified 11/21/21 12:35 pseudoephedrine AdvReac Intermediate hives Verified 11/21/21 12:35 brompheniramine AdvReac Mild hives Verified 11/21/21 12:35 nabumetone AdvReac Mild DIARRHEA Verified 11/21/21 12:35 raloxifene AdvReac Mild DISORIENTED Verified 11/21/21 12:35 topiramate AdvReac Mild DISORIENTED Verified 11/21/21 12:35 amitriptyline AdvReac Unknown DISORIENTED Verified 11/21/21 12:35 morphine AdvReac Unknown BURNING IN Verified 11/21/21 12:35 BACK AREA Home Medications Medication Instructions Recorded Confirmed Type cholecalciferol (vitamin D3) 125 5,000 units PO QDL tab 01/10/19 11/21/21 History mcg (5,000 unit) tablet magnesium oxide 400 mg PO QDD cap 01/10/19 11/21/21 History multivitamin 1 tab PO QDB 01/10/19 11/21/21 History lancets 33 gauge (OneTouch Delica #100 ea 10/04/19 11/20/21 Rx Lancets) amoxicillin 500 mg capsule 2,000 mg PO ONCE PRN cap 04/29/20 11/21/21 History warfarin 1 mg tablet See Rx Instructions .ROUTE 05/08/20 11/21/21 History .COMPLEX tab blood sugar diagnostic (OneTouch #25 ea 08/25/20 11/20/21 Rx Ultra Blue Test Strip) acetaminophen 500 mg tablet 500 mg PO Q6H PRN 10/08/21 11/21/21 History (Tylenol Extra Strength) tramadol 50 mg tablet 25 mg PO Q8H PRN #45 tab 10/12/21 11/21/21 Rx arclndnxxl-ossfomzzfnbmv-qtutxzmc 1 cap PO Q4H PRN 10/15/21 11/21/21 History 50 mg-325 mg-40 mg capsule losartan 100 mg tablet (Cozaar) 100 mg PO QDD 10/15/21 11/21/21 History atorvastatin 20 mg tablet 20 mg PO QDL 11/21/21 11/21/21 History ondansetron HCl 8 mg tablet 8 mg PO Q8H PRN 11/21/21 11/21/21 History prochlorperazine maleate 10 mg 10 mg PO Q6H PRN 11/21/21 11/21/21 History tablet verapamil 360 mg 24 hr 360 mg PO QDB 11/21/21 11/21/21 History capsule,extended release Patient History Medical History Aortic atherosclerosis Asthma Atrial fibrillation (~2015) Followed by [facility] Back pain, chronic Cardiac pacemaker Chronic anticoagulation Managed by [facility] Chronic osteoarthritis Compression fracture of thoracic vertebra Coronary artery calcification Diverticulitis s/p colostomy Fibromyalgia Heart failure Hematuria, gross Hepatic steatosis Hyperlipidemia Hypertension Insomnia Migraine with aura Obstructive sleep apnea Rheumatic mitral valve disease Type 2 diabetes mellitus Vitamin D deficiency Surgical History H/O colonoscopy H/O hemorrhoidectomy H/O hysterectomy with oophorectomy age 42- due to ovarian cyst and abnormal bleeding H/O mitral valve replacement (~2015) 04/23/[address] [facility] Biocor 29 mm valve. H/O tooth extraction History of appendectomy History of back surgery lumbar surgery with Dr. Chaparro in 2011 History of bilateral knee replacement left knee- 2003, right knee- 2008 History of bunionectomy History of creation of ostomy (~2013) Diverting Transverse Loop Colostomy History of surgery on arm Hx of tonsillectomy Family History Unknown Diabetes Son cerebral palsey Mother COPD (chronic obstructive pulmonary disease) Diabetes Cardiovascular disease Hypertension Cancer Bone Daughter Breast cancer Sister Breast cancer unsure of primary site Father Malignant neoplasm of esophagus Arteriosclerotic cardiovascular disease Diabetes Heart disease Hypertension Brother Prostate cancer Sister Breast cancer Social History Smoking Status: Never smoker Second Hand Exposure: No; Do You Dip or Chew Tobacco: No; Hx Alcohol Use: No Hx Substance Use: No Preferred Language: Belgian Communication Ability: Effective Visual Impairment: Limited Hearing Ability: Normal 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 Required: No Beliefs That Will Affect Care: None marital status: Current Living Situation: Spouse current occupational status: retired 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; 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 [employer] How many Children do You have: 3 How many Children do You have Comment: son passed at age 18 Feels Safe at Home: No Is there a partner from a previous relationship who is making you feel unsafe now?: No Any Concerns about Your Family Situation: No Would You Like to Speak to Someone About Your Situation: No Safety Concerns: Feels Safe At This Time Childhood Exposure to Second-Hand Smoke: Yes caffeine: No during the past year weight has: remained stable Dental Care, Regularly: Yes Physical Activity Frequency: 1-2 Times per Week Seatbelt Use: always Sunscreen Use: Yes Review of Systems Review of Systems: All systems reviewed & are unremarkable except as noted in HPI & below Physical Exam Constitutional: WD/WN, vitals as above ENMT: Ears: no hearing impairment Nose: no external nose abnormality Neck: normal visual inspection and trachea midline Respiratory: normal respiratory effort, lungs clear to auscultation Gastrointestinal (Abdomen): pos bs, ostomy noted left mid abdomen with yellow liquid stool (no blood) Skin: normal turgor Neurologic: PERRL, EOMI, accommodation nl, no face palsy, no dysarthria Psychiatric: A+Ox3, euthymic affect Results & Data ([facility]) Vital Signs (Past 12 Hours) Vital Signs Temp Pulse Pulse Resp BP Pulse Ox 11/22/21 15:06 93 H 11/22/21 15:00 93 H 18 11/22/21 11:00 36.7 C 86 18 118/65 95 11/22/21 07:30 36.9 C 88 16 129/73 96 11/22/21 07:06 91 H 11/22/21 07:00 88
[2021-11-22] MEDS: MAGNESIUM OXIDE 400 MG TAB PO SCH (17:44)
--- NOTE | 2021-11-22 17:53 | Billing Data ---
Date of Service November 22, 2021 Coding Level of Care Code 52637 Subseq Hosp Care Lvl 2
--- NOTE | 2021-11-22 17:53 | Billing Data ---
Date of Service November 22, 2021 Coding Level of Care Code 85828 Subseq Hosp Care Lvl 3 Comment 233, please disregard 232, entered in error, thanks!
[2021-11-22] MEDS: cefTRIAXone SODIUM 1,000 MG in DEXTROSE 5% 50 ML IV SCH (18:36)
[2021-11-22 19:24] LABS: Hematocrit (blood only) 24.4 % (37-47); Hemoglobin 8.1 g/dL (12.0-16.0); Mean Corpuscular Hemoglobin 28.5 pg (25-34); Mean Corpuscular Hgb Conc 33.2 g/dL (32-36); Mean Corpuscular Volume 85.9 fL (80-100); Mean Platelet Volume 8.9 fL (7.4-10.4); Nucleated RBC # (auto) 0.05 K/uL (0-0); Nucleated RBC % (auto) 0.4 %; Platelet Count 307 K/uL (130-400); RDW Coefficient of Variation 19.6 % (11.5-14.5); RDW Standard Deviation 60.4 fL (36.4-46.3); Red Blood Count 2.84 M/uL (4.2-5.4); White Blood Count 10.84 K/uL (4.8-10.8)
[2021-11-22] MEDS: ATORVASTATIN 20 MG TAB PO SCH (19:50)
[2021-11-22] MEDS: ACETAMINOPHEN 500 MG TAB PO PRN (23:22)
[2021-11-23] MEDS: PANTOprazole 40 MG in DEXTROSE 5% 100 ML IV SCH ×3 (01:20→11:32)
[2021-11-23 05:54] LABS: Hematocrit (blood only) 23.9 % (37-47); Hemoglobin 7.8 g/dL (12.0-16.0); Mean Corpuscular Hemoglobin 28.2 pg (25-34); Mean Corpuscular Hgb Conc 32.6 g/dL (32-36); Mean Corpuscular Volume 86.3 fL (80-100); Mean Platelet Volume 8.9 fL (7.4-10.4); Platelet Count 277 K/uL (130-400); RDW Coefficient of Variation 19.3 % (11.5-14.5); RDW Standard Deviation 60.1 fL (36.4-46.3); Red Blood Count 2.77 M/uL (4.2-5.4); White Blood Count 10.33 K/uL (4.8-10.8)
[2021-11-23 06:29] LABS: BUN Creatinine Ratio 22.3 (10-20); Calcium 7.5 mg/dl (8.5-10.1); Creatinine Clr Calc Pharmacy 47.2 ml/min; Est GFR (African American) 65.9 ml/min; Est GFR (Non-African American) 56.9 ml/min
[2021-11-23] MEDS: VERAPAMIL HCL 180 MG TABCR PO SCH (08:01)
[2021-11-23] MEDS: CHOLECALCIFEROL 5,000 UNITS 125 MCG TAB PO SCH (08:01)
--- NOTE | 2021-11-23 11:11 | Hospitalist Progress Note ---
Date of Service November 23, 2021 Assessment & Plan (1) Anemia: Plan: 81 year old female w/ renal carcinoma s/p adrenalectomy, hypertension, hyperlipidemia, and A. fib presenting with increased weakness and confusion at home, found to have Hb of 4.8 on admission. Patient had a therapeutic paracentesis on 11/20 (day prior to admission) in which 9L of fluid was removed and patient received 150 mL of albumin. Anemia - Normocytic acute blood loss anemia with associated iron deficiency - Hgb 12.3 just one month ago - s/p 3u PRBC with appropriate rise in Hgb; 7.8 today which is stable - No overt hemorrhage identified - CT A/P does not have evidence of source of bleed, no retroperitoneal hematoma noted. No recent falls, trauma. Nonbloody emesis, has had occasional scant amounts of bright red blood in ostomy - GI consulted. Appreciate their recommendations. - Would treat ascites as if she has SBP. Cover with PPI for peptic disease. Monitor CBC daily as inpt and weekly as outpt unless hospice is chosen. Ascites/Suspected SBP - GI consulted, appreciate their recommendations, as above. - Transitioned from protonix gtt to protonix 40mg IV BID - Increased from ceftriaxone 1000mg IV daily to ceftriaxone 2000mg IV daily on 11/23. - If patient remains hemodynamically stable, will consider transition from IV ceftriaxone to po cipro 500mg po BID x5 days. Hyponatremia, stable - Na 127 on admission; improved to 131 today - Continue to monitor BMP daily Peritoneal carcinomatosis - History of left adrenal carcinoma s/p left adrenalectomy - Poor prognosis - Currently being treated by Dr. Low. Metabolic Encephalopathy, resolved DULCE MARIA, resolved Elevated troponin, resolved -- minimally elevated hsTrop elevated on admission but trended to peak Chronic conditions: Hypertension: Hold verapamil and losartan for now due to borderline hypotension/normotension Atrial fibrillation: Maintained on warfarin 2 mg daily except Fridays when she takes 3 mg. Has been on hold since 11/17/21 in preparation for paracentesis (completed). Will continue to hold due to ongoing blood loss/anemia. DM2: Diet controlled, no acute needs. Hyperlipidemia: Continue atorvastatin 20 mg daily. Cardiac pacemaker: Placed in March 2016 at time of mitral valve replacement. MRI compatible. FENGI: Regular diet, no current IVF Dispo: Admit to PCU. DVT ppx: SCDs; chemoppx contraindicated due to acute bleed Code status: DNR/DNI (2) Hyponatremia: (3) Metabolic encephalopathy: (4) Elevated troponin: (5) DULCE MARIA (acute kidney injury): (6) Carcinoma of left adrenal gland: (7) Hypertension: (8) Atrial fibrillation: (9) Type 2 diabetes mellitus: (10) Hyperlipidemia: (11) Cardiac pacemaker: (12) H/O mitral valve replacement: Admission and Anticipated Discharge Date Admission Date: November 21, 2021 Supervising Physician Co-Signing Physician Notes Resident Physician Supervision Note: I independently interviewed and examined the patient and verified the guillen history and physical, reviewed labs and image studies and agree with resident Dr. Larsen findings and care plan. Subjective Patient seen and evaluated at bedside. States that she is overall doing much better and offers no complaints or concerns this morning. States that she is eating "too well." Did not get much sleep last night which she attributes to environmental factors. Patient denies CP, SOB, abd pain, nausea, vomiting, change in stool output from ostomy, hematochezia, melena, hematemesis, HATCH, lightheadedness, or dizziness. Patient very conversational, stating that she knows she was given "3-6 months to live a few months ago." Patient states that she "came up with a list of things hoping to accomplish before dying" and she is working through that list. She "does not want to be in the hospital and would prefer to be at home" where she can "slip away peacefully." She notes that she would not want any invasive testing or aggressive therapy. Code status discussed with patient and she reports DNR/DNI status stating, "I've talked to my about this." Code status changed to DNR/DNI. Review of Systems Review of Systems: See HPI Physical Exam Physical Exam: GENERAL: No acute distress. Resting comfortably in bed. Vital signs reviewed as above. HENT: Moist mucous membranes. RESPIRATORY: Clear to auscultation bilaterally. No wheezing, rales, or rhonchi. CARDIOVASCULAR: Regular rate and rhythm. + murmur. ABDOMEN: Soft and non-tender. Mildly distended. Normal bowel sounds. Ostomy in place with brown stool output; no melena or hematochezia seen. EXTREMITIES: No edema. Non-tender. SKIN: Warm, dry. NEUROLOGIC: A/O x3. No focal neurological deficits. 5/5 strength in BLE. PSYCHIATRIC: Cooperative. Appropriate mood and affect. Results & Data Results & Data ([facility]) Vital Signs (Past 12 Hours) Vital Signs Temp Pulse Pulse Resp BP BP Pulse Ox 11/23/21 09:56 77 11/23/21 07:52 36.8 C 84 18 132/79 96 11/23/21 03:44 36.9 C 85 15 104/60 96 11/22/21 23:32 82 11/22/21 23:13 39.6 C H 84 15 100/64 95 Laboratory Results 11/23/21 11/23/21 11/22/21 Range/Units 05:14 05:14 18:58 WBC 10.33 10.84 H (4.8-10.8) K/uL RBC 2.77 L 2.84 L (4.2-5.4) M/uL Hgb 7.8 L 8.1 L (12.0-16.0) g/dL Hct 23.9 L 24.4 L (37-47) % MCV 86.3 85.9 (80-100) fL MCH 28.2 28.5 (25-34) pg MCHC 32.6 33.2 (32-36) g/dL RDW Std Deviation 60.1 H 60.4 H (36.4-46.3) fL RDW Coeff of Jeff 19.3 H 19.6 H (11.5-14.5) % Plt Count 277 307 (130-400) K/uL MPV 8.9 8.9 (7.4-10.4) fL Absolute Nucleated RBC 0.05 H (0-0) K/uL Nucleated RBC % (auto) 0.4 % Sodium 131 L (136-145) mmol/L Potassium 5.0 (3.5-5.1) mmol/L Chloride 104 (98-107) mmol/L Carbon Dioxide 21 (21-32) mmol/L Anion Gap 6 (3-11) BUN 21 (6-23) mg/dl Creatinine 0.94 (0.6-1.2) mg/dl Est Cr Clr Drug Dosing 47.2 ml/min Est GFR ( Amer) 65.9 ml/min Est GFR (Non-Af Amer) 56.9 ml/min BUN/Creatinine Ratio 22.3 H (10-20) Glucose 134 H (70-99(Fasting)) mg/dl Calcium 7.5 L (8.5-10.1) mg/dl Resident Activity Tracking Resident Involvement: Resident Care Provided Care Provided: Adult Hospital Medicine (1) Anemia Anemia type: unspecified type Qualified Code(s): D64.9 - Anemia, unspecified
[2021-11-23] MEDS ORDERED: cefTRIAXone SODIUM 2,000 MG in DEXTROSE 5% 50 ML IV SCH (15:00)
--- NOTE | 2021-11-23 15:17 | Gastroenterology Progress Note ---
Date of Service November 23, 2021 Assessment & Plan (1) Abdominal carcinomatosis: Plan: anemia n/v confusion ascited Would treat ascites as if she has SBP in absence of a cell count on it. N/V and confusion resolved. Given 3-6 months to live would not put patient through invasive testing for workup of anemia unless she has rapid bleeding. The red blood does not seem enough to be causing it. Would cover with PPI for peptic disease. Monitor CBC daily as inpt and recommend weekly as outpt unless hospice is chosen. Another source of bleeding could be bleeding form peritoneal mets into abdomen as well. No studies on ascites fluid to review. IBaron MD have spent 16 minutes of discrete time performing the activities of this visit which include but are not limited to review of the medical record, obtaining a history, physical exam, and entering information in the electronic record. Admission and Anticipated Discharge Date Admission Date: November 21, 2021 Subjective CC f/u anemia HPI with patient for H and P. Pt alert, tolerating solid diet. No abd pain. No bloody nor black stools. Hgb 7.8 vs 8.1 mentioned the radiologist commented on blood noted at time of paracentesis. Stool observed in ostomy if brown liquid. Physical Exam Gastrointestinal (Abdomen): normal bowel sounds, soft, nontender, no hepatosplenomegaly Results & Data ([facility]) Vital Signs (Past 12 Hours) Vital Signs Temp Pulse Pulse Resp BP BP Pulse Ox 11/23/21 11:47 36.7 C 71 18 130/72 97 11/23/21 09:56 77 11/23/21 07:52 36.8 C 84 18 132/79 96 11/23/21 03:44 36.9 C 85 15 104/60 96
[2021-11-23] MEDS: MAGNESIUM OXIDE 400 MG TAB PO SCH (16:10)
[2021-11-23] MEDS ORDERED: MELATONIN 3 MG TAB PO PRN (19:07)
[2021-11-23] MEDS: PANTOprazole 40 MG in SYRINGE 0 ML IV SCH (20:44)
[2021-11-23] MEDS: ATORVASTATIN 20 MG TAB PO SCH (20:44)
[2021-11-24 06:14] LABS: Basophils # (auto) 0.01 K/uL (0-0.2); Basophils % (auto) 0.1 %; Hematocrit (blood only) 25.2 % (37-47); Hemoglobin 8.3 g/dL (12.0-16.0); Immature Granulocytes # (auto) 0.08 K/uL (0.00-0.02); Immature Granulocytes % (auto) 0.8 %; Lymphocytes # (auto) 1.21 K/uL (1.2-3.4); Lymphocytes % (auto) 11.4 %; Mean Corpuscular Hemoglobin 28.6 pg (25-34); Mean Corpuscular Volume 86.9 fL (80-100); Mean Platelet Volume 8.6 fL (7.4-10.4); Monocytes # (auto) 0.79 K/uL (0.11-0.59); Monocytes % (auto) 7.5 %; Neutrophils # (auto) 8.51 K/uL (1.4-6.5); Neutrophils % (auto) 80.2 %; Nucleated RBC # (auto) 0.02 K/uL (0-0); Nucleated RBC % (auto) 0.2 %; Platelet Count 342 K/uL (130-400); RDW Coefficient of Variation 19.1 % (11.5-14.5); RDW Standard Deviation 60.2 fL (36.4-46.3)
[2021-11-24 06:21] LABS: Mean Corpuscular Hgb Conc 32.9 g/dL (32-36)
[2021-11-24 06:34] LABS: BUN Creatinine Ratio 23.6 (10-20); Calcium 7.9 mg/dl (8.5-10.1); Creatinine Clr Calc Pharmacy 49.4 ml/min; Est GFR (African American) 70.4 ml/min; Est GFR (Non-African American) 60.8 ml/min; Potassium 4.9 mmol/L (3.5-5.1)
[2021-11-24 07:40] VITALS: TEMP 97.9
[2021-11-24] MEDS: VERAPAMIL HCL 180 MG TABCR PO SCH (08:31)
[2021-11-24] MEDS: PANTOprazole 40 MG in SYRINGE 0 ML IV SCH (08:31)
[2021-11-24] MEDS: CHOLECALCIFEROL 5,000 UNITS 125 MCG TAB PO SCH (08:31)
--- NOTE | 2021-11-24 08:40 | Gastroenterology Progress Note ---
Date of Service November 24, 2021 Assessment & Plan (1) Abdominal carcinomatosis: Plan: anemia: improved after inpatient transfusion, stable at present time - Another source of bleeding could be bleeding form peritoneal mets into abdomen as well. n/v: resolved confusion: resolved ascites: Would continue to treat ascites as if she has SBP in absence of a cell count on it. Given 3-6 months to live would not put patient through invasive testing for workup of anemia unless she has rapid bleeding. The red blood does not seem enough to be causing it. Would cover with PPI for peptic disease. Monitor CBC daily as inpt and recommend weekly as outpt unless hospice is c kisha. Case reviewed with Dr. Jj. Please refer to supervising physician addendum for further recommendations. I have spent 10 minutes of discrete time performing the activities of this visit which include but are not limited to review of the medical record, obtaining a history, physical exam, and entering information in the electronic record. Admission and Anticipated Discharge Date Admission Date: November 21, 2021 Supervising Physician Co-Signing Physician Notes Note reviewed. Pt was discharged prior to my rounding today so I did not see patient. Subjective Patient is awake alert and oriented this morning. States overall she is feeling very well. She would like to go home. Tolerated solids this morning. Denies any abdominal pain. She does have an ostomy that she emptied twice overnight denies any blood in the stool. No nausea or vomiting. Review of Systems Review of Systems: All systems reviewed & are unremarkable except as noted in Subjective Physical Exam Gastrointestinal (Abdomen): normal bowel sounds, soft, nontender, no hepatosplenomegaly Left mid abdominal ostomy with appliance intact. Stoma pink and healthy. Small amount of brown/yellow stool noted in ostomy appliance bag. Results & Data ([facility]) Vital Signs (Past 12 Hours) Vital Signs Temp Pulse Pulse Resp BP Pulse Ox 11/24/21 07:40 82 11/24/21 07:39 36.6 C 78 18 117/73 96 11/24/21 02:58 37.0 C 74 15 116/62 96 11/23/21 23:13 36.5 C 91 H 15 137/74 96 11/23/21 22:58 75 Laboratory Results Laboratory Results - last 24 hr 11/24/21 11/24/21 06:02 06:02 WBC 10.60 RBC 2.90 L Hgb 8.3 L Hct 25.2 L MCV 86.9 MCH 28.6 MCHC 32.9 RDW Std Deviation 60.2 H RDW Coeff of Jeff 19.1 H Plt Count 342 MPV 8.6 Immature Gran % (Auto) 0.8 Neut % (Auto) 80.2 Lymph % (Auto) 11.4 [place] % (Auto) 7.5 Eos % (Auto) 0.0 Baso % (Auto) 0.1 Neut # (Auto) 8.51 H Lymph # (Auto) 1.21 [place] # (Auto) 0.79 H Eos # (Auto) 0.00 Baso # (Auto) 0.01 Immature Gran # (Auto) 0.08 H Absolute Nucleated RBC 0.02 H Nucleated RBC % (auto) 0.2 Sodium 133 L Potassium 4.9 Chloride 104 Carbon Dioxide 24 Anion Gap 5 BUN 21 Creatinine 0.89 Est Cr Clr Drug Dosing 49.4 Est GFR ( Amer) 70.4 Est GFR (Non-Af Amer) 60.8 BUN/Creatinine Ratio 23.6 H Glucose 120 H Calcium 7.9 L Magnesium 2.0
--- NOTE | 2021-11-24 09:58 | Discharge Summary ---
Date of Service November 24, 2021 Admission HPI Per Admitting Provider Patient is an 81-year-old female with past medical history significant for renal carcinoma s/p adrenalectomy, hypertension, hyperlipidemia, and A. fib presenting today with increased weakness and confusion at home. Patient had a therapeutic paracentesis yesterday, 11/20 in which 9L of fluid was removed and patient received 150 mL of albumin. She was initially quite fatigued after the procedure, and became increasingly confused as the evening progressed. She had difficulty keeping her eyes open an maintaining conversation. This morning, she was unable to tell her family her name or birthday. They brought her to the ED for further evaluation of this. She has had ongoing generalized weakness, and nausea with some nonbloody emesis this week, which was thought to be due to large volume malignant ascites and has resolved after her paracentesis. No fever/chills, no recent falls, chest pain, cough, shortness of breath, abdominal pain. She does occasionally have minimal blood noted in ostomy, this is not new for her, and it has been unchanged over the past week. Of note, patient was supposed to have her paracentesis this past Tuesday, however her INR was 4.0 at that time, therefore it was deferred until yesterday and her warfarin has been held. Her INR yesterday morning was 2.4, so has been reports she received vitamin K in order to proceed with paracentesis. In ED, she is borderline hypotensive at 103/58, HR 90s, otherwise VS wnl. Labs significant for WBC 12.18, lactate 0.9. Hgb 4.8, BUN 47, Cr 1.59, sodium 127, hsTrop 15.6. CT A/P with no evidence of bleeding, did show interval progression of the peritoneal carcinomatosis demonstrated by increase in the soft tissue nodularity/caking at the omentum, small ascites with slight improvement. Head CT unremarkable. CXR with mild cardiomegaly and trace pleural effusion, pulmonary vascular congestion. Principal Diagnosis anemia Discharge Exam GENERAL: No acute distress. Resting comfortably in bed. Vital signs reviewed as above. HENT: Moist mucous membranes. RESPIRATORY: Unlabored respirations. Able to speak in full sentences without i ncreased work of breathing. SKIN: Warm, dry. NEUROLOGIC: A/O x3. No focal neurological deficits. PSYCHIATRIC: Cooperative. Appropriate mood and affect. Discharge Data Allergies Allergy/AdvReac Type Severity Reaction Status Date / Time citalopram Allergy Intermediate ? HIVES Verified 11/21/21 12:35 codeine Allergy Intermediate HIVES, Verified 11/21/21 12:35 NAUSEA/VOMITING adhesive Allergy Mild Redness of Verified 11/21/21 12:35 Skin dexbrompheniramine Allergy Unknown Unknown Verified 11/21/21 12:35 pregabalin Allergy Unknown unknown Verified 11/21/21 12:35 triprolidine Allergy Unknown Unknown Verified 11/21/21 12:35 metformin AdvReac Intermediate diarrhea Verified 11/21/21 12:35 pseudoephedrine AdvReac Intermediate hives Verified 11/21/21 12:35 brompheniramine AdvReac Mild hives Verified 11/21/21 12:35 nabumetone AdvReac Mild DIARRHEA Verified 11/21/21 12:35 raloxifene AdvReac Mild DISORIENTED Verified 11/21/21 12:35 topiramate AdvReac Mild DISORIENTED Verified 11/21/21 12:35 amitriptyline AdvReac Unknown DISORIENTED Verified 11/21/21 12:35 morphine AdvReac Unknown BURNING IN Verified 11/21/21 12:35 BACK AREA Consultations 11/21/21 12:23 ED Decision to Admit Stat 11/21/21 18:04 Consult Gastroenterology Routine Ordered Studies 11/21/21 10:10 CT head/brain wo con Stat 11/21/21 11:36 CT abd pelvis wo con Stat Hospital Course (1) Anemia: 81 year old female w/ renal carcinoma s/p adrenalectomy, hypertension, hyperlipidemia, and A. fib presenting with increased weakness and confusion at home, found to have Hb of 4.8 on admission. Patient had a therapeutic paracentesis on 11/20 (day prior to admission) in which 9L of fluid was removed and patient received 150 mL of albumin. Anemia - Normocytic acute blood loss anemia with associated iron deficiency - Hgb 12.3 just one month ago - s/p 3u PRBC with appropriate rise in Hgb; Hgb 8.3 on day of discharge, which is stable - No overt hemorrhage identified - CT A/P does not have evidence of source of bleed, no retroperitoneal hematoma noted. No recent falls, trauma. Nonbloody emesis, has had occasional scant amounts of bright red blood in ostomy - GI consulted. Appreciate their recommendations. - Would treat ascites as if she has SBP. Cover with PPI for peptic disease. Monitor CBC daily as inpt and weekly as outpt unless hospice is chosen. - Recommend weekly CBC monitoring Ascites/Suspected SBP - GI consulted, appreciate their recommendations, as above. - Transitioned from protonix gtt to protonix 40mg IV BID on 11/23. Discharged home with rx for pantoprazole 40mg po daily. - Increased from ceftriaxone 1000mg IV daily to ceftriaxone 2000mg IV daily on 11/23. Discharged home with rx for ciprofloxacin 500mg po BID x5 days. Hyponatremia, stable - Na 127 on admission; improved to 133 on day of discharge - Recommend BMP on PCP f/u Peritoneal carcinomatosis - History of left adrenal carcinoma s/p left adrenalectomy - Poor prognosis - Currently being treated by Dr. Low Metabolic Encephalopathy, resolved DULCE MARIA, resolved Elevated troponin, resolved -- minimally elevated hsTrop elevated on admission but trended to peak Chronic conditions: Hypertension: Held verapamil and losartan during hospitalization for normotension/borderline hypotension. Restarted on discharge. Atrial fibrillation: Maintained on warfarin 2 mg daily except Fridays when she takes 3 mg. Has been on hold since 11/17/21 in preparation for paracentesis (completed). Will continue to hold due to ongoing blood loss/anemia. Will need monitoring in outpatient setting and patient to be instructed when to restart as outpt. DM2: Diet controlled, no acute needs. Hyperlipidemia: Continue atorvastatin 20 mg daily. Cardiac pacemaker: Placed in March 2016 at time of mitral valve replacement. MRI compatible. FENGI: Regular diet Dispo: home Code status: DNR/DNI (2) Hyponatremia: (3) Metabolic encephalopathy: (4) Elevated troponin: (5) DULCE MARIA (acute kidney injury): (6) Carcinoma of left adrenal gland: (7) Hypertension: (8) Atrial fibrillation: (9) Type 2 diabetes mellitus: (10) Hyperlipidemia: (11) Cardiac pacemaker: (12) H/O mitral valve replacement: Total Time Total Time Spent Total Time Spent (In Minutes): See attending attestation Discharge Plan Discharge Items Patient Disposition: Home - Self-Care Reason For Visit: CONFUSION,HGB 4.8 Discharge Diagnosis: Anemia, Spontaneous Bacterial Peritonitis Activity: Per Instructions section Non-emergency contact: Primary Care Provider and Oncologist Call non-emergency contact if: you have any medication questions and your symptoms worsen Follow-up/Referrals: Baron Shi, [Primary Care Provider] - 12/03/21 11:30 am (Please follow up with Dr. Shi on 12/03/21 at 11:30 am. Please arrive to the office at 11:15 am for your appointment. If you are unable to keep this appointment, please call the office to reschedule at [phone]. ) Diet: Regular Addtl Attending Provider Instructions: Ms. Gates, It was our pleasure caring for you at [facility] from 11/21- 11/24/21 for your anemia and Spontaneous Bacterial Peritonitis. While in patient, you were found to be severely anemic and required blood transfusions with 3 units of packed red blood cells. No obvious cause of your bleed was noted on CT imaging and aggressive procedures including colonoscopy and EGD were deferred at the time in regards to searching for a bleed. Your hemoglobin levels stabilized after the transfusions and no further bleeding had been noted. There was also concern of SBP or spontaneous bacterial peritonitis -- an infection that can occur in your abdomen whenever you have ascites. You were given IV antibiotics and are being transitioned to oral antibiotics for treatment. Please see below for following instructions: 1) Please follow up with your PCP in the next 1 week, at that appointment please have them check a CBC (complete blood count) checking for anemia. If you notice any further bleeding, please be evaluated either by your PCP or in the ED sooner to ensure your levels are not dropping. 2) Pick your your antibiotic Ciprofloxacin 500mg twice a day by mouth and start taking it today 11/24/21 for 5 total days. 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 4) Please continue to HOLD your Warfarin until you are seen by your PCP and they have ensured that your blood counts are not lower. At that time they can resume your anticoagulation (it is listed as "continue" on your medication list so that it is not lost to the system, please hold it as instructed) 5) If your symptoms worsen or return, please return for reevaluation Pending Studies at Discharge: No Stand-Alone Forms: My [facility], Smoking Cessation Medications and DC Order Prescriptions: New ciprofloxacin HCl 500 mg tablet 500 mg PO BID 5 Days Qty: 10 RF: 0 omeprazole 40 mg capsule,delayed release(DR/EC) 40 mg PO DAILY 30 Days Qty: 30 RF: 2 Continued amoxicillin 500 mg capsule 2,000 mg PO ONCE PRN (Reason: 30 to 60 mons prior to dental procedure) RF: 0 warfarin 1 mg tablet See Rx Instructions .ROUTE .COMPLEX RF: 0 (DME) OneTouch Ultra Blue Test Strip Strip See Dose Instructions .ROUTE .MEDSUPPLY Qty: 25 RF: 5 tramadol 50 mg tablet 25 mg PO Q8H PRN (Reason: pain) Qty: 45 RF: 0 magnesium oxide 400 mg magnesium capsule 400 mg PO QDD RF: 0 multivitamin tablet 1 tab PO QDB RF: 0 cholecalciferol (vitamin D3) 5,000 unit tablet 5,000 units PO QDL RF: 0 (DME) lancets [OneTouch Delica Lancets] 33 gauge misc See Rx Instructions .ROUTE .MEDSUPPLY Qty: 100 RF: 0 acetaminophen [Tylenol Extra Strength] 500 mg tablet 500 mg PO Q6H PRN (Reason: Pain) RF: 0 bikyxjchpt-fcbppsfqngkvr-mypw 50-325-40 mg capsule 1 cap PO Q4H PRN (Reason: headache) RF: 0 losartan [Cozaar] 100 mg tablet 100 mg PO QDD RF: 0 ondansetron HCl 8 mg tablet 8 mg PO Q8H PRN (Reason: Nausea And Vomiting) RF: 0 prochlorperazine maleate 10 mg tablet 10 mg PO Q6H PRN (Reason: Nausea And Vomiting) RF: 0 verapamil 360 mg capsule,ext rel. pellets 24 hr 360 mg PO QDB RF: 0 atorvastatin 20 mg tablet 20 mg PO QDL RF: 0 Discharge Orders: Discharge Order (Routine); Ordered 11/24/21 Ordered By: Scar Mckeon/Other Patient Handouts: Anemia Admission Data Admit Date/Time: 11/21/21 13:06 Attending Provider: Claudia Gutierrez Admit Provider: Parvez Sorto Primary Care Provider: Baron Shi Other Providers: Parvez Sorto ; Baron Jj Other Interventions: Discharge Summary Assessment (RN) Last Done: 05/31/22 12:08 Supervising Physician Co-Signing Physician Notes Resident Physician Supervision Note: I independently interviewed and examined the patient and verified the guillen history and physical, reviewed labs and image studies and agree with resident Dr. Larsen findings and care plan. Resident Activity Tracking Resident Involvement: Resident Care Provided Care Provided: Adult Hospital Medicine
[2021-11-24 11:44] VITALS: PULSE 81; O2SAT 97
[2021-11-24 12:12] VITALS: BP 130/72
== END 2021-11-24 14:34 | disposition home or self-care (01) | DRG 811 ==
LOC: ED 09:59 → SUATTDRO 13:06 → 2S 13:06